=== PATIENT | female | born 1975 | race Caucasian/White ===

== ENCOUNTER → 2020-04-13 13:51 | Outpatient (BNVA) | payer BC, SELFPAY | PROVIDERS: PCP Internal Medicine; Visit Provider Obstetrics & Gynecology | DX: Z76.89 Persons encountering health services in other specified circumstances (principal) ==

== ENCOUNTER 2020-05-09 06:37 | Outpatient (REF) | payer BC, SELFPAY ==
--- NOTE | 2020-05-09 | XR_ITS ---
EXAMINATION: XR CHEST CLINICAL INFORMATION: Cough COMPARISON: None TECHNIQUE: 2 views of the chest were obtained. FINDINGS: The lungs are clear. There is no airspace consolidation or definite groundglass opacity. The costophrenic sulci are well-defined. The heart is normal in size. The hilar and mediastinal contours are normal. Bony structures are unremarkable. XR/XR chest 2V IMPRESSION: Unremarkable examination.
[2020-05-09 11:16] LABS: MANUAL DIFF FLAG NO
[2020-05-09 11:28] LABS: Basophils Absolute Auto 0.1 X10*3/uL (0.0-0.2); Basophils Percent Auto 0.8 % (0-2); Eosinophils Absolute Auto 0.1 X10*3/uL (0.0-0.4); Eosinophils Percent Auto 1.7 % (0-4); Hematocrit 38.9 % (37-47); Hemoglobin 12.4 g/dl (12.0-16.0); Imm Gran Abs Auto 0.02 X10*3/uL (0.00-0.03); Imm Gran Pct Auto 0.3 % (0.0-0.4); Lymphocytes Absolute Auto 2.1 X10*3/uL (1.2-4.9); Lymphocytes Percent Auto 32.2 % (20-40); Mean Corpuscular HGB Conc 31.9 g/dl (31.0-35.0); Mean Corpuscular Hemoglobin 28.3 pg (27.0-33.0); Mean Corpuscular Volume 88.8 fL (80-98); Mean Platelet Volume 10.5 fL (9.4-12.3); Monocytes Absolute Auto 0.5 X10*3/uL (0.1-1.2); Monocytes Percent Auto 7.9 % (2-11); Neutrophils Absolute Auto 3.6 X10*3/uL (2.0-8.3); Neutrophils Percent Auto 57.1 % (45-73); Platelet Count 263 X10*3/uL (160-400); Red Blood Count 4.38 X10*6/uL (4.20-5.50); Red Cell Distribution Width 12.7 % (11.0-16.0); White Blood Count 6.4 X10*3/uL (4.8-10.8)
[2020-05-09 11:38] LABS: Glucose Urine UA NEG (NEG); Leukocyte Esterase Urine TRACE (NEG); Nitrite Urine NEG (NEG); Urine Blood TRACE (NEG); Urine Ketones NEG (NEG); Urine Protein NEG (NEG-TRACE)
[2020-05-09 11:46] LABS: Appearance Urine HAZY; Color Urine YELLOW
[2020-05-09 11:58] LABS: Alanine Aminotransferase 8 U/L (0-31); Albumin Level 3.8 g/dL (3.5-5.0); Alkaline Phosphatase 45 U/L (39-117); Anion Gap 15 (12-20); Aspartate Amino Transferase 14 U/L (5-31); Bilirubin Total 0.5 mg/dL (0.0-1.0); Blood Urea Nitrogen 10 mg/dL (9-16); Calcium 8.2 mg/dL (8.4-10.2); Carbon Dioxide 21 mmol/L (22-29); Chloride 106 mmol/L (96-108); Cholesterol 181 mg/dL; Estimated Glomerular Filt Rate > 60; Glucose Random 86 mg/dL (60-115); HDL Cholesterol 57 mg/dL; LDL Cholesterol Calculated 87 mg/dl; Potassium 4.4 mmol/l (3.3-5.1); Sodium 138 mmol/L (135-145); Total Protein 6.5 g/dL (6.5-8.0); Triglycerides 185 mg/dL
[2020-05-09 12:00] LABS: Bacteria Urine 2+ /LPF; Squamous Epithelial Cell Urine 2+ /LPF
[2020-05-09 12:07] LABS: Free T4 (Free Thyroxine) 0.77 ng/dL (0.71-1.85); Thyroid Stimulating Hormone 3.04 uIU/mL (0.32-4.0)
[2020-05-10 10:08] LABS: SARS COV2 IgG Negative (Negative)
[2020-05-10 16:27] LABS: Follicle Stimulating Hormone 4.2 mIU/mL
== END 2020-05-09 06:38 | disposition home or self-care (01) ==
LOC: HO.HMGCLDS 06:37
PROVIDERS: PCP Physician Assistant; Visit Provider Physician Assistant
DX: Z00.00 Encounter for general adult medical examination without abnormal findings (principal); R05 Cough; Z20.822 Contact with and (suspected) exposure to COVID-19; R61 Generalized hyperhidrosis; R53.83 Other fatigue; Z01.84 Encounter for antibody response examination
CPT/HCPCS: 36415; 71046; 80053; 80061; 81001; 83001; 84439; 84443; 85025; 86769

== ENCOUNTER 2020-05-14 07:00 | Outpatient (REF) | payer BC, SELFPAY ==
[2020-05-14 12:48] LABS: Glucose Urine UA NEG (NEG); Leukocyte Esterase Urine NEG (NEG); Nitrite Urine NEG (NEG); PH 5.5 (5.0-8.0); Specific Gravity - Urine >= 1.030 (1.005-1.025); Urine Blood 1+ (NEG); Urine Ketones NEG (NEG); Urine Protein NEG (NEG-TRACE)
[2020-05-14 12:55] LABS: Appearance Urine TURBID; Color Urine YELLOW
[2020-05-14 13:08] LABS: RBC Urine 0-2 /HPF (0); Squamous Epithelial Cell Urine 2+ /LPF
[2020-05-14 13:09] LABS: Bacteria Urine TRACE /LPF
== END 2020-05-14 07:01 | disposition home or self-care (01) ==
LOC: HO.HMGCLDS 07:00
PROVIDERS: PCP Physician Assistant; Visit Provider Physician Assistant
DX: N39.0 Urinary tract infection, site not specified (principal)
CPT/HCPCS: 81001; 81003; 87086

== ENCOUNTER 2021-01-12 07:55 | Outpatient (REF) | payer BC, SELFPAY ==
--- NOTE | ~2021-01-12 | MM_ITS ---
EXAMINATION: MM SCREENING DIGITAL BREAST TOMOSYNTHESIS, BILATERAL CLINICAL INFORMATION: Screening. Asymptomatic. The lifetime risk of breast cancer based on the Tyrer-Cuzick Model is 11%. COMPARISON: Mammography: 11/29/2019, 09/18/2018, 08/29/2017 TECHNIQUE: Digital breast tomosynthesis is performed in both the craniocaudal and mediolateral oblique views along with computer-aided detection (CAD). Synthesized 2D images are generated from the tomosynthesis. FINDINGS: There are scattered areas of fibroglandular density (ACR BI-RADS breast composition Category b). There are no significant masses, abnormal calcifications, or other abnormalities. Parenchymal pattern is similar to prior exams. No developing density. No significant changes. MM/MM tomosynthesis screening BI IMPRESSION: No mammographic evidence of malignancy. ASSESSMENT: BI-RADS 1: Negative RECOMMENDATION: Routine annual mammography screening. This patient's information was entered into a reminder system with a target due date for their next mammogram.
== END 2021-01-12 07:56 | disposition home or self-care (01) ==
LOC: HO.MAMMO 07:55
PROVIDERS: PCP Nurse Practitioner Family; Visit Provider Nurse Practitioner Family
DX: Z12.31 Encounter for screening mammogram for malignant neoplasm of breast (principal)
CPT/HCPCS: 77063; 77067

== ENCOUNTER → 2021-04-30 15:07 | Outpatient (BNVA) | payer OTHER, SELFPAY | PROVIDERS: PCP Nurse Practitioner Family; Visit Provider Advanced Practice Midwife ==

== ENCOUNTER 2021-05-23 06:37 | Outpatient (REF) | payer OTHER, SELFPAY ==
[2021-05-23 11:30] LABS: Appearance Urine CLEAR; Color Urine YELLOW; Glucose Urine UA NEG (NEG); Leukocyte Esterase Urine NEG (NEG); Nitrite Urine NEG (NEG); PH 7.5 (5.0-8.0); Specific Gravity - Urine 1.015 (1.005-1.025); Urine Blood NEG (NEG); Urine Ketones NEG (NEG); Urine Protein NEG (NEG-TRACE)
[2021-05-23 11:39] LABS: Hematocrit 40.3 % (37.0-47.0); Mean Corpuscular HGB Conc 32.3 g/dl (31.0-35.0); Mean Corpuscular Hemoglobin 28.5 pg (27.0-33.0); Mean Corpuscular Volume 88.4 fL (80.0-98.0); Mean Platelet Volume 10.3 fL (9.4-12.3); Platelet Count 277 X10*3/uL (160-400); Red Blood Count 4.56 X10*6/uL (4.20-5.50); Red Cell Distribution Width 12.7 % (11.0-16.0)
[2021-05-23 11:56] LABS: Alanine Aminotransferase 12 U/L (0-31); Albumin Level 3.9 g/dL (3.5-5.0); Alkaline Phosphatase 46 U/L (39-117); Anion Gap 11 (12-20); Aspartate Amino Transferase 16 U/L (5-31); Bilirubin Total 0.5 mg/dL (0.0-1.0); Blood Urea Nitrogen 12 mg/dL (9-16); Calcium 9.1 mg/dL (8.4-10.2); Carbon Dioxide 26 mmol/L (22-29); Chloride 106 mmol/L (96-108); Cholesterol 170 mg/dL; Estimated Glomerular Filt Rate > 60; Glucose Fasting 94 mg/dL (60-99); HDL Cholesterol 49 mg/dL; LDL Cholesterol Calculated 90 mg/dl; Potassium 4.2 mmol/L (3.3-5.1); Sodium 139 mmol/L (135-145); Total Protein 6.7 g/dL (6.5-8.0); Triglycerides 156 mg/dL
[2021-05-23 12:20] LABS: Thyroid Stimulating Hormone 2.53 uIU/mL (0.32-4.0); Vitamin D 25-OH Total 34.2 ng/mL (>30)
== END 2021-05-23 06:38 | disposition home or self-care (01) ==
LOC: HO.HMGCLDS 06:37
PROVIDERS: Visit Provider Nurse Practitioner Family
DX: Z00.00 Encounter for general adult medical examination without abnormal findings (principal); E78.2 Mixed hyperlipidemia; R00.2 Palpitations; E55.9 Vitamin D deficiency, unspecified; R31.29 Other microscopic hematuria
CPT/HCPCS: 36415; 80053; 80061; 81003; 82306; 84443; 85027

== ENCOUNTER 2022-01-25 08:50 | Outpatient (REF) | payer OTHER, SELFPAY ==
--- NOTE | ~2022-01-25 | MM_ITS ---
EXAMINATION: MM SCREENING DIGITAL BREAST TOMOSYNTHESIS, BILATERAL CLINICAL INFORMATION: Screening. Asymptomatic. The lifetime risk of breast cancer based on the Tyrer-Cuzick Model is 11%. COMPARISON: Mammography: 01/12/2021, 11/29/2019, 09/18/2018 TECHNIQUE: Digital breast tomosynthesis is performed in both the craniocaudal and mediolateral oblique views along with computer-aided detection (CAD). Synthesized 2D images are generated from the tomosynthesis. FINDINGS: There are scattered areas of fibroglandular density (ACR BI-RADS breast composition Category b). There are no significant masses, abnormal calcifications, or other abnormalities. Parenchymal pattern is similar to prior studies. There is no developing density or architectural abnormality. The axilla and skin contours are unremarkable. No significant changes. MM/MM tomosynthesis screening BI IMPRESSION: No mammographic evidence of malignancy. ASSESSMENT: BI-RADS 1: Negative RECOMMENDATION: Routine annual mammography screening. This patient's information was entered into a reminder system with a target due date for their next mammogram.
== END 2022-01-25 08:51 | disposition home or self-care (01) ==
LOC: HO.MAMMO 08:50
PROVIDERS: Visit Provider Nurse Practitioner Family
DX: Z12.31 Encounter for screening mammogram for malignant neoplasm of breast (principal)
CPT/HCPCS: 77063; 77067

== ENCOUNTER 2022-05-01 14:57 | Outpatient (REF) | payer OTHER, SELFPAY ==
[2022-05-03 14:33] LABS: BV Int Neg Control Negative (Negative); BV Int Pos Control Positive (Positive)
[2022-05-09 22:13] LABS: HPV mRNA E6/E7 rflx Not Detected (Not Detected)
== END 2022-05-01 14:58 | disposition home or self-care (01) ==
LOC: HO.LNP 14:57
PROVIDERS: PCP Nurse Practitioner Family; Visit Provider Advanced Practice Midwife
DX: Z01.419 Encounter for gynecological examination (general) (routine) without abnormal findings (principal); Z11.51 Encounter for screening for human papillomavirus (HPV)
CPT/HCPCS: 87480; 87510; 87624; 87660; 88142

== ENCOUNTER 2022-05-31 10:00 | Outpatient (REF) | payer OTHER, SELFPAY ==
[2022-05-31 10:11] LABS: MANUAL DIFF FLAG NO
[2022-05-31 10:39] LABS: Basophils Absolute Auto 0.1 X10*3/uL (0.0-0.2); Basophils Percent Auto 0.9 % (0-2); Eosinophils Absolute Auto 0.2 X10*3/uL (0.0-0.4); Eosinophils Percent Auto 3.4 % (0-4); Hematocrit 40.8 % (37.0-47.0); Hemoglobin 13.4 g/dl (12.0-16.0); Imm Gran Abs Auto 0.01 X10*3/uL (0.00-0.03); Imm Gran Pct Auto 0.2 % (0.0-0.4); Lymphocytes Percent Auto 35.7 % (20-40); Mean Corpuscular HGB Conc 32.8 g/dl (31.0-35.0); Mean Corpuscular Hemoglobin 28.4 pg (27.0-33.0); Mean Corpuscular Volume 86.4 fL (80.0-98.0); Mean Platelet Volume 9.9 fL (9.4-12.3); Monocytes Absolute Auto 0.5 X10*3/uL (0.1-1.2); Monocytes Percent Auto 8.4 % (2-11); Neutrophils Absolute Auto 2.9 x10*3/uL (2.0-8.3); Neutrophils Percent Auto 51.4 % (45-73); Platelet Count 229 X10*3/uL (160-400); Red Blood Count 4.72 X10*6/uL (4.20-5.50); Red Cell Distribution Width 12.5 % (11.0-16.0); White Blood Count 5.6 X10*3/uL (4.8-10.8)
[2022-05-31 10:45] LABS: Appearance Urine Cloudy; Color Urine Yellow; Glucose Urine UA Negative (Negative); Leukocyte Esterase Urine Moderate (2+) (Negative); Nitrite Urine Negative (Negative); Specific Gravity - Urine 1.025 (1.005-1.025); UMIC TRIGGER UA YES; Urine Blood Trace (Negative); Urine Ketones Trace mg/dL (Negative); Urine Protein Negative (Neg-Trace)
[2022-05-31 11:15] LABS: Bacteria Urine 1+ (None Seen); Hyaline Casts Urine 0-2 /LPF (0-2); WBC Urine 0-5 /HPF (0-5)
[2022-05-31 11:38] LABS: Alanine Aminotransferase 26 U/L (0-31); Albumin Level 4.2 g/dL (3.5-5.0); Alkaline Phosphatase 56 U/L (39-117); Anion Gap 11 (12-20); Aspartate Amino Transferase 23 U/L (5-31); Bilirubin Total 0.7 mg/dL (0.0-1.0); Blood Urea Nitrogen 11 mg/dL (9-16); Calcium 9.2 mg/dL (8.4-10.2); Carbon Dioxide 25 mmol/L (22-29); Chloride 107 mmol/L (96-108); Cholesterol 180 mg/dL; Estimated Glomerular Filt Rate > 60; Glucose Random 93 mg/dL (60-115); HDL Cholesterol 48 mg/dL; LDL Cholesterol Calculated 114 mg/dl; Sodium 139 mmol/L (135-145); Total Protein 6.7 g/dL (6.5-8.0); Triglycerides 93 mg/dL
[2022-05-31 11:39] LABS: Thyroid Stimulating Hormone 1.25 uIU/mL (0.32-4.0)
== END 2022-05-31 10:01 | disposition home or self-care (01) ==
LOC: HO.LAB 10:00
PROVIDERS: PCP Nurse Practitioner Family; Visit Provider Nurse Practitioner Family
DX: Z00.00 Encounter for general adult medical examination without abnormal findings (principal)
CPT/HCPCS: 36415; 80053; 80061; 81001; 84443; 85025

== ENCOUNTER 2022-07-18 07:29 | Outpatient (REF) | payer OTHER, SELFPAY ==
[2022-07-18 13:07] LABS: HCG Quantitative < 2 mIU/mL
[2022-07-20 10:13] LABS: Follicle Stimulating Hormone 31.4 mIU/mL
== END 2022-07-18 07:30 | disposition home or self-care (01) ==
LOC: HO.HMGCLDS 07:29
PROVIDERS: Visit Provider Advanced Practice Midwife
DX: N91.2 Amenorrhea, unspecified (principal); N95.1 Menopausal and female climacteric states
CPT/HCPCS: 36415; 83001; 84702

== ENCOUNTER → 2022-07-30 15:43 | Outpatient (BNVA) | payer OTHER, SELFPAY | PROVIDERS: PCP Nurse Practitioner Family; Visit Provider Advanced Practice Midwife | DX: Z13.89 Encounter for screening for other disorder (principal) ==

== ENCOUNTER 2023-01-31 09:39 | Outpatient (REF) | payer OTHER, SELFPAY ==
[2023-02-01 23:28] LABS: Follicle Stimulating Hormone 20.8 mIU/mL
== END 2023-01-31 09:40 | disposition home or self-care (01) ==
LOC: HO.MAMMO 09:39
PROVIDERS: PCP Nurse Practitioner Family; Referring Provider Advanced Practice Midwife; Visit Provider Nurse Practitioner Family
DX: Z12.31 Encounter for screening mammogram for malignant neoplasm of breast (principal); R23.2 Flushing
CPT/HCPCS: 36415; 77063; 77067; 83001

== ENCOUNTER → 2023-01-31 10:00 | Outpatient (BNV) | payer OTHER, SELFPAY | PROVIDERS: PCP Nurse Practitioner Family; Referring Provider Advanced Practice Midwife; Visit Provider Radiology Diagnostic Radiology | DX: Z12.31 Encounter for screening mammogram for malignant neoplasm of breast (principal) | CPT/HCPCS: 77063; 77067 ==

== ENCOUNTER 2023-02-12 15:38 | Outpatient (AMB) | payer OTHER, SELFPAY ==
--- NOTE | 2023-02-12 15:40 | A.OFFVIS_ITS ---
Intake Vital Signs 02/12/23 15:43 Height 5 ft 4 in Weight 177 lb BMI 30.4 BP 132/80 Intake Visit Reasons: 6 month pill follow up Intake Note: The patient agreed to use of a medical record technician during this encounter. Scribed for DAGMAR Villatoro by Chika Romeo medical record technician, on 02/12/2023 at 3:50 pm, EST. Allergies latex [Latex] Allergy (Unknown, Verified 02/12/23 15:40) RASH HPI HPI Comments History of Present Illness Details Following up on Carmen 0.35 mg PO daily. Doing well with no yarn wrapper concerns. Tries to eat healthy and stay active. Discontinue the use of Carmen in 11/2022. Confirms difficulty sleeping, weight gain, and hot flashes. Confirmed bleeding in 11/2022. Denies having one since. PFSH Medical History Hot flashes History of kidney stones Surgical History History of removal of calculus of renal pelvis through percutaneous nephrostomy History of History of left oophorectomy History of dilation and curettage Family History Father Hypertension Diabetes Hyperlipidemia History of quadruple bypass Mother Frontotemporal dementia Brother Hypothyroid Social History Alcohol intake: current Alcohol intake frequency: holidays/special occasions only Patient Tobacco Use Status: Never used Tobacco Sexual orientation: Straight/Heterosexual Gender identity: Female Female Reproductive History Menstrual Age of Menarche: 11 Total pregnancies: 3 Full term: 2 Number of Living Children: 2 Ab spontaneous: 1 Review of Systems Const All systems reviewed & are unremarkable except as noted in HPI and below Reports fatigue (Due to not being able to stay asleep.) and Reports weight gain Reports hot flashes Endo Reports fatigue (Due to not being able to stay asleep.) Physical Exam Vital Signs: Last Vital Signs BP 132/80 02/12/23 15:43 BMI result Body Mass Index 30.4 Results Reviewed Results Reviewed: 07/18/2022- FSH 31.4 01/31/2023- FSH 20.8 Assessment & Plan Assessment & Plan (1) Perimenopausal: Code(s): N95.1 - Menopausal and female climacteric states Plan: Maintaining a healthy lifestyle including a well balanced diet including Calcium and Vitamin D and routine exercise. Perimenopause verses menopause. If bleeding less then 3 weeks apart or heavy prolong bleeding then she should come sooner then her 05/2023 appointment. We will continue monitoring at this time. Encouraged to use condoms for reproductive protection. All of her questions and concerns were addressed to the best of my ability Annual 05/2023. (2) Encounter to discuss test results: Code(s): Z71.2 - Person consulting for explanation of examination or test findings Plan: Test results were reviewed while in the office today. Coding Level of Care Code Est Pt Level 3 (13496) Diagnoses Perimenopausal N95.1 Encounter to discuss test results Z71.2
[2023-02-12 15:43] VITALS: BP 132/80; BMI 30.4
== END 2023-02-12 16:28 | disposition home or self-care (01) ==
PROVIDERS: Visit Provider Advanced Practice Midwife
DX: N95.1 Menopausal and female climacteric states (principal); Z71.2 Person consulting for explanation of examination or test findings
CPT/HCPCS: 99213

== ENCOUNTER → 2023-02-12 15:38 | Outpatient (BNVA) | payer OTHER, SELFPAY | PROVIDERS: Visit Provider Advanced Practice Midwife ==

== ENCOUNTER 2023-05-14 15:45 | Outpatient (AMB) | payer OTHER, SELFPAY ==
--- NOTE | 2023-05-14 15:48 | MHC.OFFVIS ---
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 She is doing well with concerns: menses are skipping, occasional hot flashes. Attempting to eat a healthy diet with calcium and vitamin D and stays active with exercise. Currently not sexually active. Denies any vaginal dryness or irritation. Last pap smear; 2021. Last mammogram; 2022 . Colonoscopy, not done yet, plans to call. Denies any family history of breast, ovarian or colon cancer. [facility] Medical History Hot flashes History of kidney stones Surgical History History of removal of calculus of renal pelvis through percutaneous nephrostomy History of History of left oophorectomy History of dilation and curettage Family History Father Hypertension Diabetes Hyperlipidemia History of quadruple bypass Mother Frontotemporal dementia Brother Hypothyroid Social History Alcohol intake: current Alcohol intake frequency: holidays/special occasions only Patient Tobacco Use Status: Never used Tobacco Sexual orientation: Straight/Heterosexual Gender identity: Female Female Reproductive History Menstrual Age of Menarche: 11 Duration of menses: 6-7 days Date of last menstrual period: 02/27/23 control method: none Total pregnancies: 3 Full term: 2 Number of Living Children: 2 Ab spontaneous: 1 Date of last pap smear: 05/02/22 (negative) History of abnormal pap smear: No Date of Mammogram: 01/31/23 Review of Systems Const All systems reviewed & are unremarkable except as noted in HPI and below Reports as per HPI Eyes Reports no additional complaints ENT Reports no additional complaints Card Reports no additional complaints Resp Reports no additional complaints GI Reports as per HPI and Reports no additional complaints Reports as per HPI Musc Reports no additional complaints Skin/Breast Reports as per HPI Neuro Reports no additional complaints Psych Reports no additional complaints Endo Reports no additional complaints Randy/Lymph Reports no additional complaints Aller/Immun Reports no additional complaints Physical Exam Vital Signs: Last Vital Signs BP 118/80 05/14/23 15:49 BMI result Body Mass Index 30.2 Const General: cooperative, healthy appearing, no acute distress, well developed and alert Orientation/consciousness: patient oriented x3 HEENT Head: Yes normal to inspection Eyes General: appearance normal, both eyes and all related structures Neck Neck: Yes normal visual inspection Thyroid: Thyroid normal Chest Chest palpation & inspection: normal inspection of the chest and other (no puckering, dimpling, peau de orange, retraction, discharge, masses) Breast/axilla inspection: normal inspection of the breasts Breast/axilla palpation: normal palpation of the breasts Resp Effort & Inspection: normal respiratory effort GI Inspection: Yes normal to inspection Palpation (GI): Soft to palpation Rectal Exam - Female: deferred General: Yes bladder normal to palpation External Female Exam: normal external appearance and normal appearance of the urethra Speculum Exam - Vagina: normal appearance of the vagina, normal palpation and normal vaginal discharge Speculum Exam - Cervix: normal appearance of the cervix and normal palpation Bimanual exam- vagina & uterus: normal bimanual exam, normal palpation, uterine size normal, bladder normal to palpation, normal palpation and non-tender Bimanual Exam- Adnexa, other: no masses Skin General skin exam: no rashes or lesions noted Rashes: no rashes Neuro General: patient oriented x3 Cognition (Neuro): normal cognition Extrem General: Yes normal to inspection Psych Attitude: cooperative Thought process: Normal thought process present Assessment & Plan Assessment & Plan (1) Encounter for well woman exam with routine gynecological exam: Code(s): Z01.419 - Encounter for gynecological examination (general) (routine) without abnormal findings Plan Discussed: Current recommendations for pap smears per ASCCP guidelines. Breast awareness, periodic self breast exams and yearly mammogram. Maintain a healthy lifestyle, well balanced diet including Calcium 1,200 mg and Vitamin D 600 IU daily, and routine exercise. Sleep hygiene, OTC medications/supplements-magnesium, melatonin, may try one or the other to see if it will help with sleep. Monitor menstrual cycles, report any unscheduled bleeding, bleeding episodes <21 days apart or heavy/prolonged menstrual bleeding. No menses for 12 months would be considered menopausal, bleeding after that point would be considered abnormal. Report any abnormal bleeding. All of her questions and concerns were addressed to the best of my ability. RTO in 1 year for annual intensive care nurse exam, or p.r.n.. This note is constructed using voice recognition software. While every effort has been made to ensure accuracy, director inbound sales errors may have been included. Orders: Orders MM tomosynthesis screening BI Today Z12.31 - Encounter for screening mammogram for malignant neoplasm of breast Coding Level of Care Code Est Pt Prev Care 40-64y(70648) Diagnoses Encounter for well woman exam with routine gynecological exam Z01.419
[2023-05-14 15:49] VITALS: BP 118/80; BMI 30.2
== END 2023-05-14 16:25 | disposition home or self-care (01) ==
LOC: HO.HWS 15:45
PROVIDERS: PCP Nurse Practitioner Family; Visit Provider Advanced Practice Midwife
DX: Z01.419 Encounter for gynecological examination (general) (routine) without abnormal findings (principal)
CPT/HCPCS: 99396

== ENCOUNTER → 2023-05-14 15:45 | Outpatient (BNVA) | payer OTHER, SELFPAY | PROVIDERS: PCP Nurse Practitioner Family; Visit Provider Advanced Practice Midwife ==

== ENCOUNTER 2023-05-26 06:58 | Outpatient (REF) | payer OTHER, SELFPAY ==
[2023-05-26 11:39] LABS: Appearance Urine Clear; Color Urine Yellow; Glucose Urine UA Negative (Negative); Leukocyte Esterase Urine Negative (Negative); Nitrite Urine Negative (Negative); PH 5.5 (5.0-9.0); Urine Blood Negative (Negative); Urine Ketones Negative (Negative); Urine Protein Negative (Neg-Trace)
[2023-05-26 11:44] LABS: MANUAL DIFF FLAG NO
[2023-05-26 12:02] LABS: Basophils Percent Auto 0.8 % (0-2); Eosinophils Absolute Auto 0.2 X10*3/uL (0.0-0.4); Hematocrit 40.8 % (37.0-47.0); Hemoglobin 13.3 g/dl (12.0-16.0); Imm Gran Abs Auto 0.02 X10*3/uL (0.00-0.03); Imm Gran Pct Auto 0.4 % (0.0-0.4); Lymphocytes Absolute Auto 1.7 X10*3/uL (1.2-4.9); Mean Corpuscular HGB Conc 32.6 g/dl (31.0-35.0); Mean Corpuscular Hemoglobin 28.6 pg (27.0-33.0); Mean Corpuscular Volume 87.7 fL (80.0-98.0); Monocytes Absolute Auto 0.4 X10*3/uL (0.1-1.2); Monocytes Percent Auto 8.2 % (2-11); Neutrophils Absolute Auto 2.7 x10*3/uL (2.0-8.3); Neutrophils Percent Auto 53.6 % (45-73); Platelet Count 214 X10*3/uL (160-400); Red Blood Count 4.65 X10*6/uL (4.20-5.50); Red Cell Distribution Width 12.7 % (11.0-16.0)
[2023-05-26 15:47] LABS: Alanine Aminotransferase 15 U/L (0-31); Albumin Level 4.2 g/dL (3.5-5.0); Alkaline Phosphatase 71 U/L (39-117); Anion Gap 11 (12-20); Aspartate Amino Transferase 19 U/L (5-31); Bilirubin Total 0.6 mg/dL (0.0-1.0); Blood Urea Nitrogen 12 mg/dL (9-16); Carbon Dioxide 27 mmol/L (22-29); Chloride 104 mmol/L (96-108); Cholesterol 151 mg/dL (<200); Estimated Glomerular Filt Rate > 60; Glucose Random 88 mg/dL (60-115); HDL Cholesterol 51 mg/dL (>40); LDL Cholesterol Calculated 86 mg/dL (<100); Sodium 138 mmol/L (135-145); Total Protein 6.8 g/dL (6.5-8.0); Triglycerides 74 mg/dL (<150)
[2023-05-26 16:07] LABS: Thyroid Stimulating Hormone 2.79 uIU/mL (0.32-4.0); Vitamin D 25-OH Total 38.9 ng/mL (>30)
== END 2023-05-26 06:59 | disposition home or self-care (01) ==
LOC: HO.HMGCLDS 06:58
PROVIDERS: PCP Nurse Practitioner Family; Visit Provider Nurse Practitioner Family
DX: Z00.00 Encounter for general adult medical examination without abnormal findings (principal); E78.2 Mixed hyperlipidemia; E55.9 Vitamin D deficiency, unspecified; E66.3 Overweight
CPT/HCPCS: 36415; 80053; 80061; 81003; 82306; 84443; 85025

== ENCOUNTER 2023-10-30 08:54 | Day surgery (SDC) | payer OTHER, SELFPAY ==
[2023-10-28 13:40] VITALS: BMI 30.2
--- NOTE | 2023-10-29 09:55 | HO.ANESPROP2 ---
HPI - Anesthesia Eval Consult details Narrative: 48yo F for Colonoscopy PMFSH Active Problems Active Problems: All Active Problems Encounter to discuss test results (Acute) Encounter for annual routine gynecological examination (Acute) Hot flashes (Acute) Past Medical History Medical History Vitamin D deficiency Hyperlipidemia Hot flashes History of kidney stones Family History Family History Father Hypertension Diabetes Hyperlipidemia History of quadruple bypass Mother Frontotemporal dementia Brother Hypothyroid Surgical History Surgical History History of removal of calculus of renal pelvis through percutaneous nephrostomy History of History of left oophorectomy History of dilation and curettage Social History Social History Household Members: Spouse Alcohol intake: current Alcohol intake frequency: holidays/special occasions only Patient Tobacco Use Status: Never used Tobacco Use of substances other than those prescribed or required for medical reasons: No Are you DNR?: No Advance Directives: No Advance Directives Information Provided: Yes Patient : No Sexual orientation: Straight/Heterosexual Gender identity: Female Meds Allergies Allergy/AdvReac Type Severity Reaction Status Date / Time latex [Latex] Allergy Unknown RASH Verified 10/30/23 09:09 Home Medications ?Medication ?Instructions ?Recorded ?Confirmed ?Last Taken ?Type atorvastatin 10 mg tablet 10 mg PO DAILY 04/13/20 10/30/23 10/28/23 History cholecalciferol (vitamin D3) 50 50 mcg PO DAILY 04/30/21 10/30/23 10/29/23 History mcg (2,000 unit) capsule Exam Height,Weight and Vital Signs: Height 5 ft 5 in Weight 82.327 kg Assessment and Plan Assessment Anesthesia Assessment: Chart Reviewed
[2023-10-30 09:01] VITALS: BMI 28.3
--- NOTE | 2023-10-30 09:12 | HO.ANESPROP2 ---
FORMERLY [facility], [facility] Active Problems Active Problems: All Active Problems Encounter to discuss test results (Acute) Encounter for annual routine gynecological examination (Acute) Hot flashes (Acute) Past Medical History Medical History Vitamin D deficiency Hyperlipidemia Hot flashes History of kidney stones Functional capacity: independent ambulation Patient : No Family History Family History Father Hypertension Diabetes Hyperlipidemia History of quadruple bypass Mother Frontotemporal dementia Brother Hypothyroid Family history of problems with anesthesia: No Surgical History Surgical History History of removal of calculus of renal pelvis through percutaneous nephrostomy History of History of left oophorectomy History of dilation and curettage History of Problems with Anesthesia: No Social History Social History Household Members: Spouse Alcohol intake: current Alcohol intake frequency: holidays/special occasions only Patient Tobacco Use Status: Never used Tobacco Use of substances other than those prescribed or required for medical reasons: No Are you DNR?: No Advance Directives: No Advance Directives Information Provided: Yes Sexual orientation: Straight/Heterosexual Gender identity: Female Meds Allergies Allergy/AdvReac Type Severity Reaction Status Date / Time latex [Latex] Allergy Unknown RASH Verified 10/30/23 09:09 Active Medications: Current Medications Lactated Ringer's (Lr) 1,000 mls @ 100 mls/hr IVCONT .Q10H YAMILA Home Medications ?Medication ?Instructions ?Recorded ?Confirmed ?Last Taken ?Type atorvastatin 10 mg tablet 10 mg PO DAILY 04/13/20 10/30/23 10/28/23 History cholecalciferol (vitamin D3) 50 50 mcg PO DAILY 04/30/21 10/30/23 10/29/23 History mcg (2,000 unit) capsule Exam Height,Weight and Vital Signs: Height 5 ft 5 in Weight 77.111 kg Airway Mallampati Class: II TM Dist: >3cm Neck ROM: Full Heart: RRR Lungs: CTA Assessment and Plan Assessment Anesthesia Assessment: Anesthesia Plan Discussed Final Anesthetic Review Family History of Problems with Anesthesia: No History of Problems with Anesthesia: No NPO: Yes ASA Class: II Final Preanesthetic Review: Meds/Allgs Chart Reviewed, Consent Obtained/Reviewed and Anes Risks/Benef Reviewed Patient Risk: Low Procedure Risk: Low Anesthetic Plan Anesthetic Plan: MAC: Disposition: Standard PACU
--- NOTE | 2023-10-30 09:22 | P.HPSUR_ITS ---
Pre-Procedural Eval Section A - 24 Hr Update-Section A only Date of Service: 10/30/23 Section B - Complete if H&P > 30 days Chief Complaint: Encounter for screening for malignant neoplasm of Details of Present Illness: see H&P no changes Relevant Family History (Specify if Yes): No Relevant Social History: None Present Medications: see Short Stay Collaborative assessment Medical History: No relevant PMH History of Previous Operations: No relevant previous surgery Allergies: Allergies Allergy/AdvReac Type Severity Reaction Status Date / Time latex [Latex] Allergy Unknown RASH Verified 10/30/23 09:09 Review of Systems Sugical H&P ROS: Negative: Constitution, Cardiovascular, Respiratory, Neurological, Psychiatric, Hem-Onc, Allergic/Immunologic, Gastrointestinal, Genitourinary, Musculoskeletal, Integumentary, Endocrine and Eyes/E ars/Nose/Throat Exam Surgical H&P Exam: Normal: HEENT, Normal: Heart, Normal: Lungs, Normal: Extremities, Normal: Abdomen, Normal: Skin and Normal: Neurological Plan Diagnosis/Plan: Unchanged I have reviewed the history and physical and performed a pertinent physical examination on my patient. No changes have occurred unless specified. Time Spent With Patient Time: Total time managing care of this patient today ____ minutes.
[2023-10-30 09:23] VITALS: BP 124/79; PULSE 97; RESP 16; TEMP 36.7; O2SAT 99
[2023-10-30] MEDS: Lactated Ringers 1,000 ML 100 ML IVCONT (09:25)
[2023-10-30 09:26] LABS: UPreg QC Valid YES; Urine Pregnancy NEGATIVE (NEGATIVE)
[2023-10-30 10:01] VITALS: BP 103/51; PULSE 76; RESP 16; TEMP 36.3; O2SAT 95
[2023-10-30 10:16] VITALS: BP 122/78; PULSE 71; RESP 16; O2SAT 96
--- NOTE | 2023-10-30 10:21 | OP_ITS ---
DATE OF SERVICE: 10/30/2023 SURGEON: Jd Blanco MD INDICATIONS: Colon cancer screening. PREOPERATIVE DIAGNOSIS: POSTOPERATIVE DIAGNOSIS: PROCEDURE PERFORMED: Colonoscopy to the terminal ilium. ESTIMATED BLOOD LOSS: COMPLICATIONS: ANESTHESIA: Monitored anesthesia care. ASSISTANTS: SPECIMENS: DESCRIPTION OF PROCEDURE: A history and physical was performed. The risks and benefits of the procedure were explained to the patient. Informed consent was obtained. The patient was placed in the left lateral decubitus position. A digital rectal exam was performed and was found to be normal. The Olympus pediatric video colonoscope was introduced into the rectum and advanced to the cecum. The cecum was identified by transillumination, palpation, and identification of ileocecal valve. Examination was performed. The scope was removed. She tolerated the procedure well and was returned to the recovery area in stable condition. FINDINGS: The terminal ileum was examined and appeared normal. The visualized colonic mucosa was within normal limits without evidence of masses or ulcers. No polyps were identified. The quality of the prep was good. Retroflexed examination showed some small internal hemorrhoids. IMPRESSION: Normal colonoscopy. RECOMMENDATION: 1. Follow up as needed. 2. Repeat colonoscopy is recommended in 10 years for average-risk individuals. MD PABLO Brannon/FLACA / [phone]
--- NOTE | 2023-10-30 10:25 | HO.POSTANES ---
Post Anesthesia Evaluation Post Anesthesia Evaluation Date of Service: 10/30/23 Vital Signs: Vital Signs Temp Pulse Resp BP Pulse Ox O2 Del Method 10/30/23 10:16 71 16 122/78 96 Room Air 10/30/23 10:01 97.4 F 76 16 103/51 L 95 Room Air 10/30/23 09:23 98.1 F 97 16 124/79 99 Room Air Anesthesia: Monitored Mental Status: Awake Pain Control: Satisfactory Nausea/Vomiting: None Hydration: Adequate Anesthesia-Related Issues: No Anes. Related Issues
[2023-10-30 10:30] VITALS: BP 123/81; PULSE 70; RESP 16; TEMP 36.2; O2SAT 99
== END 2023-10-30 11:30 | disposition home or self-care (01) ==
PROVIDERS: Nurse Practitioner; PCP Registered Nurse; Visit Provider Internal Medicine Gastroenterology
PROC: 0DJD8ZZ Inspection of Lower Intestinal Tract, Via Natural or Artificial Opening Endoscopic (ICD-10-PCS; CPT 45378; principal; 2023-10-30 10:00)
DX: Z12.11 Encounter for screening for malignant neoplasm of colon (principal); K64.8 Other hemorrhoids; E78.5 Hyperlipidemia, unspecified; E55.9 Vitamin D deficiency, unspecified; Z79.899 Other long term (current) drug therapy; Z91.040 Latex allergy status; Z98.890 Other specified postprocedural states
CPT/HCPCS: 45378; 81025; J2704

== ENCOUNTER 2024-02-06 09:50 | Outpatient (REF) | payer OTHER, SELFPAY ==
--- NOTE | ~2024-02-06 | MM_ITS ---
EXAMINATION: MM SCREENING DIGITAL BREAST TOMOSYNTHESIS, BILATERAL CLINICAL INFORMATION: Screening. Asymptomatic. COMPARISON: Mammography: Comparison is made with available priors TECHNIQUE: Digital breast mammography with tomosynthesis is performed in both the craniocaudal and mediolateral oblique views along with computer-aided detection (CAD). FINDINGS: There are scattered areas of fibroglandular density (ACR BI-RADS breast composition Category b). There are no significant masses, abnormal calcifications, or other abnormalities. MM/MM tomosynthesis screening BI IMPRESSION: No mammographic evidence of malignancy. ASSESSMENT: BI-RADS BI-RADS 1 - Negative RECOMMENDATION: Routine annual mammography screening. 1 year F/U This examination should not preclude the clinical evaluation of a suspicious palpable abnormality. This patient's information was entered into a reminder system with a target due date for their next mammogram. Electronically signed by: Lesly Gleason DO 02/19/2024 09:31 AM EDT
== END 2024-02-06 09:51 | disposition home or self-care (01) ==
LOC: HO.MAMMO 09:50
PROVIDERS: PCP Registered Nurse; Visit Provider Registered Nurse
DX: Z12.31 Encounter for screening mammogram for malignant neoplasm of breast (principal)
CPT/HCPCS: 77063; 77067

== ENCOUNTER → 2024-02-06 10:00 | Outpatient (BNV) | payer OTHER, SELFPAY | PROVIDERS: PCP Registered Nurse; Visit Provider Internal Medicine | DX: Z12.31 Encounter for screening mammogram for malignant neoplasm of breast (principal) | CPT/HCPCS: 77063; 77067 ==

== ENCOUNTER 2024-05-27 07:21 | Outpatient (REF) | payer OTHER, SELFPAY ==
--- OUTSIDE RECORDS SUMMARY | 2024-05-27 07:25 | XMS_ITS | Data Portability ---
Author Organization [facility] Home Service Address [address] [place] [address] Assessment No assessment recorded. Plan of Treatment Reminders Order Date Submit Date Provider Last Modified By Organization Details Last Modified Time Details Appointments None recorded. Lab urinalysis , dipstick 2017 018 [facility], [address] [place] [address], [address], 9 12:19:13 FSH (follicle- stimulatin g hormone), serum 2020 021 [facility], [address] [place] [address], [address], 1 12:55:00 SARS CoV 2 IgG Ab, QL IA, serum or plasma 2020 021 [facility], [address] [place] [address], [address], 13:58:59 urinalysis , complete 2020 [facility], [address] [place] [address], [address], 11:50:12 CMP, serum or plasma 2020 [facility], [address] [place] [address], [address], 1 11:50:11 CBC w/ auto diff 2020 [facility], [address] [place] [address], [address], 1 11:50:12 lipid panel, blood 2020 021 [facility], [address] [place] [address], [address], 11:50:12 TSH + free T4, serum 2020 021 [facility], [address] [place] [address], [address], 11:50:12 Referral None recorded. Procedures None recorded. Surgeries None recorded. Imaging electrocar diogram 2018 019 [email or web address] 10 [facility], [address], [address], [place], [address], 9 16:24:48 XR, hip, unilateral 2018 019 [facility]ner [facility], [place], [address], 9 08:48:35 XR, chest, 2 view 2020 021 [facility]), [address] [place] [address], [address], 17:05:50 Medication Orders valacyclov ir 500 mg tablet 2017 018 [id number], [address] [place], [address], 9 15:27:14 Patient TargetsNo targets recorded. Patient Instructions Encounter Date Encounter Id Patient Instructions Last Modified By Organization Details Last Modified Time 04/21/2018 [id number] Healthy diet Forms completed alda Not available 04/21/2018 14:18:45 04/15/2019 [id number] elevated blood pressure: care instructions valdo Not available 04/15/2019 16:15:23 learning about healthy weight Not available 04/15/2019 15:38:53 Reason for Referral None Reported. Results Created Date Observation Date Name Description Value Unit Range Abnormal Flag Note LastModifiedBy Organization Detail LastModifiedTime 04/15/20 19 04/15/2019 elect rocar diogr am Rate & Rhythm 78 Not Available [facility] [address], [place], [address], 04/15/2019 15:57:26 04/15/20 19 04/15/2019 elect rocar diogr am QRS 92 ms Not Available [facility] [address], [place], [address], 04/15/2019 15:57:26 04/15/20 19 04/15/2019 elect rocar diogr am VA Interval 154 Not Available [facility] [address] [facility], [place], [address], 04/15/2019 15:57:26 04/15/20 19 04/15/2019 elect rocar diogr am QRS Duration 92 Not Available [facility] [address], [place], [address], 04/15/2019 15:57:26 04/15/20 19 04/15/2019 elect rocar diogr am QT Interval 374/42 6 Not Available [facility] [address], [place], [address], 04/15/2019 15:57:26 09/21/19 19 09/18/2018 MAMMO , scree chuy, bilat eral No observ ation record ed. [facility] (Medical Records) [address], [place], [address], 09/20/2018 11:40:11 11/30/19 20 11/29/2019 MAMMO , diagn ostic , digit al, bilat eral No observ ation record ed. [facility] [address] [facility], [place], [address], 11/30/2019 09:51:57 05/09/19 21 05/09/2020 XR, chest , 2 view No observ ation record ed. [facility] (Medical Records) [address], [place], [address], 05/11/2020 12:11:34 Result Notes None recorded. Problems Name Problem SNOMED Code Status Onset Date Resolution Date Notes Provider Name and Address Organization Details Recorded Time Hyperchol esterolem ia 99358245 Active 2017 Shanelle Javed NP, S [address] [place] [address], [address], [facility] 8 15:56:28 Vitamin D deficienc y 70292610 Active 2017 Shanelle Javed NP, S [address] [place] [address], [address], [facility] 8 15:58:04 Herpes simplex 65084633 Active 2017 Tiffany Herr [facility] 8 15:27:47 Microscop ic hematuria 318206437 Active 2018 sees urology due to kidney stones [address], [address], [facility] 9 15:45:25 History of calculus of kidney 323389894 Active 2018 [facility] [address], [address], [facility] 9 15:45:32 Problem Notes None recorded. Procedures Surgical History Date Name Laterality Status Provider Name and Address Organization Details Recorded Time 03/04/20 18 Date of Last Pap Smear completed Shanelle Javed NP, S [address] [place] [address], [address], [facility] 04/21/2018 13:39:13 section completed [facility] [address] [place], [address], [facility] 04/15/2019 15:44:54 excision of uterine polyp completed Tiffany Kingsleyrenee [facility] 04/20/2018 15:27:19 oophorectomy completed Kandi Sarahy , [facility] [address] [place], [address], [facility] 04/15/2019 15:45:09 Imaging Results Imaging Date Name Status LastModified by Organiz ation Details LastModified Time 09/18/2018 MAMMO, screening, bilateral completed [facility] (Medical Records) [address] [place] [address], [address], 09/20/2018 11:40:11 11/29/2019 MAMMO, diagnostic, digital, bilateral completed [facility] [address] [place] [address], [address], 11/30/2019 09:51:57 05/09/2020 XR, chest, 2 view completed [facility] (Medical Records) [address] [place] [address], [address], 05/11/2020 12:11:34 Procedure Notes None recorded. Medical Equipment None Reported. Allergies Allergen ID Allergen Name Allergen Category Reaction Reaction Severity Criticality Documentation Date Start Date Code Code System Note Provider Name and Address Organization Details Recorded Time 3644 latex environme nt,medica tion Not available Not available Not available 04/15/2019 13232 91 RxNorm Kandi Kenney, [facility] [address] [place], [address], [facility] 9 15:43:27 Medications Name Sig Start Date Stop Date Status Note LastModified by Organization Details LastModified Time atorvastati n 10 mg tablet TAKE 1 TABLET BY MOUTH EVERY DAY active Not Available Not Available No t Available valacyclovi r 1 gram tablet TAKE 2 TABLETS BY MOUTH EVERY 12 HOURS FOR 1 DAY, SOON SYPMTOMS ONSET active Not Available Not Available No t Available valacyclovi r 500 mg tablet Take 1 tablet every day by oral route as needed. 12/13 /2019 completed Not Available Not Available Not Available sulfamethox azole 800 mg-trimetho prim 160 mg tablet TAKE 1 TABLET BY MOUTH EVERY 12 HOURS WITH MEALS FOR 7 DAYS. active Not Available Not Available No t Available cephalexin 500 mg capsule 04/21 completed Not Available Not Available Not Available Tri-Prevife m (28) 0.18 mg(7)/0.215 mg(7)/0.25 mg(7)-35 mcg tablet TAKE 1 TABLET BY MOUTH EVERY DAY active Not Available Not Available No t Available D3-2000 50 mcg (2,000 unit) capsule Take 1 capsule every day by oral route. active Not Available Not Available No t Available Vitals Date Recorded Body height Body mass index (BMI) Body weight Heart rate Oxygen saturation Oxygen saturation in Arterial blood by Pulse oximetry Provider Name and Address Organization Details Last Updated DateTime 9 166.37 cm 27.7 kg/m2 93025.1 1 g 80 /min 98 % 98 % Fallon Singh [facility] 9 15:28:33 Date Recorded Systolic blood pressure Diastolic blood pressure Provider Name and Address Organization Details Last Updated DateTime 04/15/2019 124 mm[Hg] 76 mm[Hg] August [address], [address] 04/15/2019 15:47:10 Date Recorded Body height Body mass index (BMI) Body weight Body temperature Heart rate Oxygen saturation Oxygen saturation in Arterial blood by Pulse oximetry Systolic blood pressure Diastolic blood pressure Provider Name and Address Organization Details Last Updated DateTime 1 163.2 cm 29.4 kg/m2 75249.6 8 g 97.8 [degF] 85 /min 97 % 97 % 130 mm[Hg] 90 mm[Hg] Fallon Singh [facility] 1 13:34:08 Date Recorded Body height Body mass index (BMI) Body weight Heart rate Oxygen saturation Oxygen saturation in Arterial blood by Pulse oximetry Systolic blood pressure Diastolic blood pressure Provider Name and Address Organization Details Last Updated DateTime 8 165.74 cm 26.9 kg/m2 39312.5 6 g 72 /min 97 % 97 % 100 mm[Hg] 60 mm[Hg] Paola Johnston [place] - [facility] 8 13:31:17 Social History Question Answer Notes LastModified by [employer] Details LastModified Time Tobacco Smoking Status Never Smoker Not Available [facility] 03/06/2020 03:36:23 What Is Your Level Of Alcohol Consumption? Occasional [id number] Information not available 03/06/2020 What Is Your Level Of Caffeine Consumption? None [id number] Information not available 03/06/2020 Do You Or Have You Ever Used E-cigarettes Or Vape? Never Used Electronic Cigarettes [email or web address] Information not available 05/08/2020 What Was The Date Of Your Most Recent Tobacco Screening? 04/21/2018 [email or web address] Information not available 05/08/2020 Do You Or Have You Ever Used Smokeless Tobacco? Never Used Smokeless Tobacco [email or web address] Information not available 05/08/2020 How Much Tobacco Do You Smoke? No [id number] Information not available 03/06/2020 How Many Years Have You Smoked Tobacco? 0 [id number] Information not available 03/06/2020 Sex: Unknown Functional Status Question Answer Note LastModified by [employer] Details LastModified Time What is your exercise level? Occasional [id number] Information not available 03/06/2020 Mental Status None recorded. Family History Relationship Description Onset Age of this Age Resolved Age Notes LastModified by Organization Details LastModified Time Mother Dementia 65 [email or web address] Not available 04/21/2018 13:35:25 Father Coronary arterioscler osis [email or web address] Not available 04/15 15:44:14 Father Diabetes mellitus [email or web address] Not available 04/15 15:44:20 Brother Disorder of thyroid gland [email or web address] Not available 04/15 15:44:33 Brother Asthma Not availabl e 04/15/2019 15:44:38 Medical History Condition Response Coronary Artery Disease N Blood Diseases N Hyperthyroidism N Blood Transfusion N COPD N Depression N Anxiety Disorder N Mental Disorder N Stroke N Fibromyalgia N Kidney Disease N Hospitalizations N Skin Problems N Constipation N Tuberculosis N Asthma N Chronic Ear Infections N Chicken Pox Y Lung Disease N Defects or Inherited Disease N Difficulty Swallowing N Anesthesia Complications N Liver Disease N Thyroid Problems N GI Problems N Anemia N Diabetes N Congestive Heart Failure (CHF) N Abuse/Domestic Violence N Reflux/GERD N Heart Disease N Hypertension N Gout N Kidney Stones Y Muscle, Joint, or Bone Problems N Arthritis N Cancer N Headaches N Heart Problems N Hepatitis N Autism Spectrum Disorder (ASD) N Breast Cancer N Hypothyroidism N Bladder or Kidney Problems N High Cholesterol Y Allergies/Hayfever Y Mental Illness N Seizures/Epilepsy N Gynecological History Statement/Question Response Abnormal Pap N Flow Moderate Frequency of Cycle (Q days) 28 Date of LMP 04/20/2018 Sexually Active? Y Menses Monthly Y HPV Vaccine N Date of Last Pap Smear 03/04/2018 Sexual Problems? N Duration of Flow (days) 7 Age at Menarche 11 Obstetrics History GPAL:G 3 P 2 0 1 0 Type Value Full Term 2 Spontaneous 1 Total 3 Immunizations Vaccine Type Date Status Note Provider Nam e and Address Organization Details Recorded Time tetanus toxoid, unspecified formulation 0 completed Monserrat michele [facility] 05/08/2020 13:20:07 Tdap 0 completed Shanelle Javed NP, S [address] [place] [address], [address] 04/21/2018 13:56:14 Past Encounters Encounter ID Performer Location Encounter Start Date Encounter Closed Date Diagnosis/Indication Diagnosis SNOMED-CT Code Diagnosis ICD10 Code Diagnosis Note [id number] Shanelle Javed NP, S [facility] [address] [place] [address],[place] [address] 04/21/2018 13:18:22 04/21/2018 15:01:42 Adult health examination 391787094 Z00.00 Active or passive immunization 964561056 Z23 Pt defers Flu vaccine Vitamin D deficiency 347 12655 E55.9 To call urologist, find out compisitio n of recent stone & if continuati on Vit. d supplement ation recommende d Herpes simplex 06054759 B00.9 helps cold sores tremendous ly Hypercholesterolemia 136 04815 E78.00 stable Microscopic hematuria 19 3882228 R31.21 [id number] August CATIA Moulton [facility] [address] [facility],[place] [address] 04/15/2019 15:19:04 04/15/2019 16:24:48 Adult health examination 077534497 Z00.00 labs done 04/2019 - reviewed Active or passive immunization 224839099 Z23 refuses flu shot ama Body mass index 25-29 - overweight 633323339 Z68.27 Pain in ri ght hip joint 5027428745 94941 M25.551 comes back everytime she starts running Increased blood pressure 02731076 R03.0 just had garlic parm fries will work on healthier diet choices exercise 30 minutes Dyspnea on exertion 6084 5006 R06.09 possibly EIB, will monitor for change consider stress test if worsening Atypical chest pain 1025 99548 R07.89 able to do spin classes without chest pain acs unlikely but f/u if persistent [id number] KAREEN ROMERO [facility] [address],[place] [address] 05/08/2020 13:19:55 05/08/2020 15:01:27 Adult health examination 216334063 Z00.00 needs repeat lab work, hasn't had it done in a year Exposure t o SARS-CoV-2 741248684 Z20.828 possible COVID in september Cough 16757717 R05 possible COVID in september, will need to check her lungs for residual affects as she is reporting chronic cough and sob with activity Hot sweats 898350330 R61 having hot flashes, will check FSH level to see if in menopause/ gayle menopause Fatigue 75023558 R53.83 family hx of thyroid with brother and parent, needs to be rechecked evan with symptoms she is presenting History of calculus of kidney 243365355 Z87.442 hx of recurrent kidney stones, needs urinalysis for hx of micro-gary turia Health Concerns Section Related Observation LastModified by Organization Detai ls LastModified Time None Recorded Concern Status LastModified by Organization Details LastModified Time None Recorded Advance Directives Directive None Recorded Payers Encounter Date Sequence Insurance Name Policy Number Policy Jo Covered Member ID Jo Member ID Guarantor Name 04/21/2018 1 [place] [id number] Kathy Whitman [id number] Kathy Whitman 05/08/2020 1 [place] [id number] Kathy Whitman [id number] Kathy Whitman Notes Date Note Type Note Provider Name a ny Address Organization Details Recorded Time 8 text/html Annual WellnessReported bypatient.Diet and Nutrition:healthy diet Fracture Risk:no history of fractures; no recent explained fracture; no sudden unexplained fractures; no previous musculoskeletal injuries Physical Activity:exercises on a regular basis; good physical condition Additional Lifestyle Factors:no tobacco use; drinks alcohol (mild-moderate) Depression Risk:never feels sad, empty, or tearful; no loss of interest in activities; no significant changes in weight; no sleep disturbances or insomnia; no agitation; no loss of energy; no feelings of worthlessness or guilt; no thoughts of suicide; no history of depression; no history of mood disorders Hearing:no loss of hearing Vision:no vision problems; wears glasses, up to date eye exams recent renal calculi saw [employer] recently for right ovarian cyst, was multi septated ?'s elevated PTH-I, nml caclium some mild CP behind breast bone after running on treadmill, worse with raising arms, Denies SOB/dizziness Shanelle Javed NP, S [address] [place], [address], [facility] 04/21/2018 14:19:19 9 text/html Annual WellnessReported bypatient.Diet and Nutrition:discussed vitamin and supplement use; discussed portion control; discussed maintaining calcium balance; discussed diet improvement Fracture Risk:no history of fractures; no recent explained fracture; no sudden unexplained fractures; no previous musculoskeletal injuries Physical Activity:does not exercise on a regular basis Additional Lifestyle Factors:no tobacco use; drinks alcohol (mild-moderate) Depression Risk:never feels sad, empty, or tearful; no loss of interest in activities; no significant changes in weight; no sleep disturbances or insomnia; no agitation; no loss of energy; no feelings of worthlessness or guilt; no thoughts of suicide; no history of depression; no history of mood disorders Hearing:no loss of hearing Vision:no vision problems (wears contacts - utd) LMP today has had hernandez intermittently and one time with chest pain on the right side of her chest August CATIA Moulton [address] [facility], [place], [address], [facility] 04/15/2019 16:17:21 1 text/html Annual WellnessReported bypatient.Diet and Nutrition:diet is high in salt;diet is high in fat, low in fiber;high caloric intake;high carbohydrate meals; discussed vitamin and supplement use; discussed portion control; discussed maintaining calcium balance; discussed diet improvement; the patient reports her diet is bad, she states that she eat junk food a lot Fracture Risk:no history of fractures; no recent explained fracture; no sudden unexplained fractures; no previous musculoskeletal injuries Physical Activity:exercises on a regular basis; discussed weightbearing activities; discussed exercise habits; spin class runs Additional Lifestyle Factors:no tobacco use; drinks alcohol (mild-moderate) Depression Risk:never feels sad, empty, or tearful; no loss of interest in activities; no significant changes in weight; no sleep disturbances or insomnia; no agitation; no loss of energy; no feelings of worthlessness or guilt; no thoughts of suicide; no history of depression; no history of mood disorders Hearing:no loss of hearing Vision:no vision problems; glasses and contacts KAREEN ROMERO [address] [place] [address], [address], [facility] 05/08/2020 14:04:52 OBGyn Episode No OBEpisode recorded.
[2024-05-27 10:23] LABS: Hematocrit 41.4 % (37.0-47.0); Hemoglobin 13.5 g/dl (12.0-16.0); Mean Corpuscular HGB Conc 32.6 g/dl (31.0-35.0); Mean Corpuscular Hemoglobin 28.2 pg (27.0-33.0); Mean Corpuscular Volume 86.4 fL (80.0-98.0); Mean Platelet Volume 10.7 fL (9.4-12.3); Platelet Count 212 X10*3/uL (160-400); Red Blood Count 4.79 X10*6/uL (4.20-5.50); Red Cell Distribution Width 12.6 % (11.0-16.0); White Blood Count 7.2 X10*3/uL (4.8-10.8)
[2024-05-27 11:31] LABS: Vitamin B12 451 pg/mL (200-900)
[2024-05-27 13:33] LABS: Alanine Aminotransferase 23 U/L (0-31); Albumin Level 4.1 g/dL (3.5-5.0); Anion Gap 12 (12-20); Aspartate Amino Transferase 31 U/L (5-31); Bilirubin Total 0.6 mg/dL (0.0-1.0); Blood Urea Nitrogen 12 mg/dL (9-16); Calcium 9.4 mg/dL (8.4-10.2); Carbon Dioxide 25 mmol/L (22-29); Chloride 110 mmol/L (96-108); Cholesterol 151 mg/dL (<200); Estimated Glomerular Filt Rate > 60; Glucose Random 94 mg/dL (60-115); HDL Cholesterol 48 mg/dL (>40); LDL Cholesterol Calculated 84 mg/dL (<100); Potassium 4.5 mmol/L (3.3-5.1); Sodium 142 mmol/L (135-145); TSH reflex Free T4 1.25 uIU/mL (0.32-4.0); Total Protein 7.2 g/dL (6.5-8.0); Triglycerides 95 mg/dL (<150); Vitamin D 25-OH Total 46.4 ng/mL (>30)
[2024-05-27 14:25] LABS: Alkaline Phosphatase 75 U/L (39-117)
== END 2024-05-27 07:22 | disposition home or self-care (01) ==
LOC: HO.HMGCLDS 07:21
PROVIDERS: PCP Registered Nurse; Visit Provider Registered Nurse
DX: Z00.00 Encounter for general adult medical examination without abnormal findings (principal); E55.9 Vitamin D deficiency, unspecified; E78.49 Other hyperlipidemia
CPT/HCPCS: 36415; 80053; 80061; 82306; 82607; 84443; 85027

== ENCOUNTER 2024-08-26 11:18 | Outpatient (REF) | payer OTHER, SELFPAY ==
--- NOTE | ~2024-08-26 | XR_ITS ---
EXAMINATION: XR LUMBOSACRAL SPINE CLINICAL INFORMATION: MIDLINE LBP WITHOUT SCIATICA COMPARISON: None available. TECHNIQUE: Three views of the lumbosacral spine. FINDINGS: There is a minimal right convex scoliosis, possibly positional. There is a normal lordosis. There is no subluxation. Normal alignment. No fracture, compression deformity, or suspicious bone lesion. Mild diffuse disc degeneration present most significant at L5-S1. Normal facet alignment. Early facet degenerative arthritis L4-S1. The sacrum is intact. The SI joints appear normal. There is no soft tissue abnormality. XR/XR lumbar spine 2-3V IMPRESSION: 1. No acute findings of the lumbar spine. 2. Mild lumbar spondylosis. Electronically signed by: Jake Haskins MD 08/29/2024 04:08 PM EDT
--- OUTSIDE RECORDS SUMMARY | 2024-08-26 12:14 | XMS_ITS | Data Portability ---
Author Organization [facility] Home Service Address [address] [place] [address] Assessment No assessment recorded. Plan of Treatment Reminders Order Date Submit Date Provider Last Modified By Organization Details Last Modified Time Details Appointments None recorded. Lab FSH (follicle- stimulatin g hormone), serum 2020 [facility], [address] [place] [address], [address], 12:55:00 SARS CoV 2 IgG Ab, QL IA, serum or plasma 2020 [facility], [address] [place] [address], [address], 13:58:59 urinalysis , complete 2020 [facility], [address] [place] [address], 164[address], 11:50:12 CMP, serum or plasma 2020 [facility], [address] [place] [address], [address], 11:50:11 CBC w/ auto diff 2020 [facility], [address] [place] [address], [address], 11:50:12 lipid panel, blood 2020 [facility], [address] [place] [address], [address], 1 11:50:12 TSH + free T4, serum 2020 021 [facility], [address] [place] [address], [address], 1 11:50:12 urinalysis , dipstick 2017 018 [facility], [address] [place] [address], [address], 9 12:19:13 Referral None recorded. Procedures None recorded. Surgeries None recorded. Imaging XR, chest, 2 view 2020 021 [facility] (Imaging), [address] [place] [address], [address], 1 17:05:50 electrocar diogram 2018 019 [email or web address] 10 [facility], [address] [facility], [address], [place], [address], 9 16:24:48 XR, hip, unilateral 2018 019 [facility], [place], [address], 9 08:48:35 Medication Orders valacyclov ir 500 mg tablet 2017 018 [id number], [address] [place], [address], 9 15:27:14 Patient TargetsNo targets recorded. Patient Instructions Encounter Date Encounter Id Patient Instructions Last Modified By Organization Details Last Modified Time 04/21/2018 [id number] Healthy diet Forms completed alda Not available 04/21/2018 14:18:45 04/15/2019 [id number] elevated blood pressure: care instructions [email or web address] Not available 04/15/2019 16:15:23 learning about healthy weight Not available 04/15/2019 15:38:53 Reason for Referral None Reported. Results Created Date Observation Date Name Description Value Unit Range Abnormal Flag Note LastModifiedBy Organization Detail LastModifiedTime 04/15/20 19 04/15/2019 elect rocar diogr am Rate & Rhythm 78 Not Available [facility] [address] [facility] [address], [place], [address], 04/15/2019 15:57:26 04/15/20 19 04/15/2019 elect rocar diogr am QRS 92 ms Not Available [facility] [address] [facility] [address], [place], [address], 04/15/2019 15:57:26 04/15/20 19 04/15/2019 elect rocar diogr am OH Interval 154 Not Available [facility] Internal [facility] [address] [facility], [place], [address], 04/15/2019 15:57:26 04/15/20 19 04/15/2019 elect rocar diogr am QRS Duration 92 Not Available [facility] [address] [facility] [address], [place], [address], 04/15/2019 15:57:26 04/15/20 19 04/15/2019 elect rocar diogr am QT Interval 374/42 6 Not Available [facility] [address] [facility] [address], [place], [address], 04/15/2019 15:57:26 09/21/19 19 09/18/2018 MAMMO , scree chuy, bilat eral No observ ation record ed. [facility] (Medical Records) [address] [facility], [place], [address], 09/20/2018 11:40:11 11/30/19 20 11/29/2019 MAMMO , diagn ostic , digit al, bilat eral No observ ation record ed. [facility] [address] [facility], [place], [address], 11/30/2019 09:51:57 05/09/19 21 05/09/2020 XR, chest , 2 view No observ ation record ed. [facility] (Medical Records) [address] [facility], [place], [address], 05/11/2020 12:11:34 Result Notes None recorded. Problems Name Problem SNOMED Code Status Onset Date Resolution Date Notes Provider Name and Address Organization Details Recorded Time Hyperchol esterolem ia 33403437 Active 2017 Shanelle Javed NP, S [address] [place] [address], [address], [facility] 8 15:56:28 Vitamin D deficienc y 52082701 Active 2017 Shanelle Javed NP, S [address] [place] [address], [address], [facility] 8 15:58:04 Herpes simplex 93072837 Active 2017 Tiffany Herr [facility] 8 15:27:47 Microscop ic hematuria 725332204 Active 2018 sees urology due to kidney stones [address], [address], [facility] 9 15:45:25 History of calculus of kidney 039044798 Active 2018 [facility] [address], [address], [facility] 9 15:45:32 Problem Notes None recorded. Procedures Surgical History Date Name Laterality Status Provider Name and Address Organization Details Recorded Time 03/04/20 18 Date of Last Pap Smear completed Shanelle Javed NP, S [address] [place] [address], [address], [facility] 04/21/2018 13:39:13 section completed [facility] [address] [place], [address], [facility] 04/15/2019 15:44:54 excision of uterine polyp completed Tiffany Kingsleyrenee [facility] 04/20/2018 15:27:19 oophorectomy completed Kandi Sarahy , [facility] [address] [place], [address], [facility] 04/15/2019 15:45:09 Imaging Results Imaging Date Name Status LastModified by Organiz ation Details LastModified Time 09/18/2018 MAMMO, screening, bilateral completed [facility] (Medical Records) [address] [place] [address], [address], 09/20/2018 11:40:11 11/29/2019 MAMMO, diagnostic, digital, bilateral completed [facility] [address] [place] [address], [address], 11/30/2019 09:51:57 05/09/2020 XR, chest, 2 view completed [facility] (Medical Records) [address] [place] [address], [address], 05/11/2020 12:11:34 Procedure Notes None recorded. Medical Equipment None Reported. Allergies Allergen ID Allergen Name Allergen Category Reaction Reaction Severity Criticality Documentation Date Start Date Code Code System Note Provider Name and Address Organization Details Recorded Time 3644 latex environme nt,medica tion Not available Not available Not available 04/15/2019 01876 91 RxNorm Kandi Kenney, [facility] [address] [place], [address], [facility] 9 15:43:27 Medications [...] Updated DateTime 9 166.37 cm 27.7 kg/m2 49104.1 1 g 80 /min 98 % 98 % Fallon Singh [facility] 9 15:28:33 Date Recorded Systolic blood pressure Diastolic blood pressure Provider Name and Address Organization Details Last Updated DateTime 04/15/2019 124 mm[Hg] 76 mm[Hg] August [address], [address] 04/15/2019 15:47:10 Date Recorded Body height Body mass index (BMI) Body weight Body temperature Heart rate Oxygen saturation Oxygen saturation in Arterial blood by Pulse oximetry Systolic blood pressure Diastolic blood pressure Provider Name and Address Organization Details Last Updated DateTime 1 163.2 cm 29.4 kg/m2 54178.6 8 g 97.8 [degF] 85 /min 97 % 97 % 130 mm[Hg] 90 mm[Hg] Fallon Singh [facility] 1 13:34:08 Date Recorded Body height Body mass index (BMI) Body weight Heart rate Oxygen saturation Oxygen saturation in Arterial blood by Pulse oximetry Systolic blood pressure Diastolic blood pressure Provider Name and Address Organization Details Last Updated DateTime 8 165.74 cm 26.9 kg/m2 01018.5 6 g 72 /min 97 % 97 % 100 mm[Hg] 60 mm[Hg] Paola Johnston [place] - [facility] 8 13:31:17 Social History Question Answer Notes LastModified by [employer] Details LastModified Time Tobacco Smoking Status Never Smoker Not Available [facility] 03/06/2020 03:36:23 What Is Your Level Of Alcohol Consumption? Occasional [id number] Information not available 03/06/2020 What Is Your Level Of Caffeine Consumption? None [id number] Information not available 03/06/2020 Do You Or Have You Ever Used E-cigarettes Or Vape? Never Used Electronic Cigarettes [email or web address] Information not available 05/08/2020 What Was The Date Of Your Most Recent Tobacco Screening? 04/21/2018 Information not available 05/08/2020 Do You Or Have You Ever Used Smokeless Tobacco? Never Used Smokeless Tobacco Information not available 05/08/2020 How Much Tobacco Do You Smoke? No [id number] Information not available 03/06/2020 How Many Years Have You Smoked Tobacco? 0 [id number] Information not available 03/06/2020 Sex: Unknown Functional Status Question Answer Note LastModified by [email or web address] Details LastModified Time What is your exercise level? Occasional [id number] Information not available 03/06/2020 Mental Status None recorded. Family History Relationship Description Onset Age of this Age Resolved Age Notes LastModified by Organization Details LastModified Time Mother Dementia 65 [email or web address] Not available 04/21/2018 13:35:25 Father Coronary arterioscler osis [email or web address] Not available 04/15 15:44:14 Father Diabetes mellitus [email or web address] Not available 04/15 15:44:20 Brother Disorder of thyroid gland [email or web address] Not available 04/15 15:44:33 Brother Asthma Not availabl e 04/15/2019 15:44:38 Medical History Condition Response Coronary Artery Disease N Gout N Kidney Stones Y Blood Diseases N Hyperthyroidism N Breast Cancer N Blood Transfusion N Lung Disease N Depression N COPD N Hypothyroidism N Defects or Inherited Disease N Difficulty Swallowing N Anesthesia Complications N Anxiety Disorder N Muscle, Joint, or Bone Problems N Arthritis N Mental Disorder N Cancer N Stroke N Bladder or Kidney Problems N High Cholesterol Y Liver Disease N Fibromyalgia N Headaches N Kidney Disease N Allergies/Hayfever Y Heart Problems N Hospitalizations N Thyroid Problems N GI Problems N Skin Problems N Anemia N Constipation N Mental Illness N Diabetes N Seizures/Epilepsy N Tuberculosis N Congestive Heart Failure (CHF) N Abuse/Domestic Violence N Asthma N Reflux/GERD N Hepatitis N Heart Disease N Chronic Ear Infections N Hypertension N Chicken Pox Y Autism Spectrum Disorder (ASD) N Gynecological History Statement/Question Response Abnormal Pap [...] toxoid, unspecified formulation 0 completed Monserrat michele [facility] 05/08/2020 13:20:07 Tdap 0 completed Shanelle Javed NP, S [address] [place] [address], [address] 04/21/2018 13:56:14 Past Encounters Encounter ID Performer Location Encounter Start Date Encounter Closed Date Diagnosis/Indication Diagnosis SNOMED-CT Code Diagnosis ICD10 Code Diagnosis Note [id number] Shanelle Javed NP, S [facility] [address] [place] [address],[place] [address] 04/21/2018 13:18:22 04/21/2018 15:01:42 Adult health examination 129272961 Z00.00 Active or passive immunization 877836930 Z23 Pt defers Flu vaccine Vitamin D deficiency 347 85683 E55.9 To call urologist, find out compisitio n of recent stone & if continuati on Vit. d supplement ation recommende d Herpes simplex 35795741 B00.9 helps cold sores tremendous ly Hypercholesterolemia 136 89216 E78.00 stable Microscopic hematuria 19 1127079 R31.21 [id number] August CATIA [place] [facility] [address] [facility],[place] [address] 04/15/2019 15:19:04 04/15/2019 16:24:48 Adult health examination 287235747 Z00.00 labs done 04/2019 - reviewed Active or passive immunization 585568258 Z23 refuses flu shot ama Body mass index 25-29 - overweight 282760130 Z68.27 Pain in ri ght hip joint 5961564692 50651 M25.551 comes back everytime she starts running Increased blood pressure 54485722 R03.0 just had garlic parm fries will work on healthier diet choices exercise 30 minutes Dyspnea on exertion 6084 5006 R06.09 possibly EIB, will monitor for change consider stress test if worsening Atypical chest pain 1025 75404 R07.89 able to do spin classes without chest pain acs unlikely but f/u if persistent [id number] KAREEN ROMERO [facility] [address],[place] [address] 05/08/2020 13:19:55 05/08/2020 15:01:27 Adult health examination 854383795 Z00.00 needs repeat lab work, hasn't had it done in a year Exposure t o SARS-CoV-2 966474654 Z20.828 possible COVID in september Cough 33182848 R05 possible COVID in september, will need to check her lungs for residual affects as she is reporting chronic cough and sob with activity Hot sweats 085634274 R61 having hot flashes, will check FSH level to see if in menopause/ gayle menopause Fatigue 98102995 R53.83 family hx of thyroid with brother and parent, needs to be rechecked evan with symptoms she is presenting History of calculus of kidney 129682854 Z87.442 hx of recurrent kidney stones, needs [...] Guarantor Name 04/21/2018 1 [place] [id number] Kathy Whitman [id number] Kathy Whitman 05/08/2020 1 [place] [id number] Kathy Whitman [id number] Kathy Whitman Notes Date Note Type Note Provider Name a nc Address Organization Details Recorded Time 8 text/html [...] date eye exams recent renal calculi saw [employer] recently for right ovarian cyst, was multi septated ?'s elevated PTH-I, nml caclium some mild CP behind breast bone after running on treadmill, worse with raising arms, Denies SOB/dizziness Shanelle Javed NP, S [address] [place], [address], [facility] 04/21/2018 14:19:19 9 [...] of her chest August CATIA [place] [address] [facility], [place], [address], [facility] 04/15/2019 16:17:21 1 [...] vision problems; glasses and contacts KAREEN ROMERO [address] [place] [address], [address], [facility] 05/08/2020 14:04:52 OBGyn Episode No OBEpisode recorded.
[2024-08-26 13:33] LABS: Anion Gap 13 (12-20); Blood Urea Nitrogen 13 mg/dL (9-16); C Reactive Protein 1.46 mg/dL (< or = 0.50); Calcium 9.7 mg/dL (8.4-10.2); Carbon Dioxide 24 mmol/L (22-29); Chloride 105 mmol/L (96-108); Estimated Glomerular Filt Rate > 60; Glucose Random 92 mg/dL (60-115); Magnesium 2.1 mg/dL (1.6-2.6); Potassium 4.1 mmol/L (3.3-5.1); Sodium 138 mmol/L (135-145)
[2024-08-26 14:07] LABS: Erythrocyte Sedimentation Rate 11 MM/HR (0-20)
[2024-08-29 21:38] LABS: Lyme Abs Screen <0.90 index
== END 2024-08-26 11:19 | disposition home or self-care (01) ==
LOC: HO.HMGCX 11:18
PROVIDERS: PCP Physician Assistant Surgical; Visit Provider Physician Assistant Surgical
DX: M54.50 Low back pain, unspecified (principal); G89.29 Other chronic pain; E87.8 Other disorders of electrolyte and fluid balance, not elsewhere classified; M25.561 Pain in right knee; M25.562 Pain in left knee
CPT/HCPCS: 36415; 72100; 80048; 83735; 85652; 86140; 86617; 86618

== ENCOUNTER → 2024-08-26 11:33 | Outpatient (BNV) | payer OTHER, SELFPAY | PROVIDERS: PCP Physician Assistant Surgical; Visit Provider Radiology Diagnostic Radiology | DX: M54.50 Low back pain, unspecified (principal) | CPT/HCPCS: 72100 ==

== ENCOUNTER → 2024-10-04 08:57 | Outpatient (REF) | payer OTHER, SELFPAY ==
--- NOTE | 2024-10-04 09:03 | CA_ITS ---
Acquisition Time: 2024-10-04 10:34:21 Total Exercise Time: 00:09:00 Test Indications: cp Medications: see h&p Protocol: MIKE Max HR: 153 BPM 90% of Pred: 169 BPM Max BP: 172/70 mmHG Max Work Load: 10.1 METS Exercise stress test with exercise 9 mins of Mike Protocol, achieving 90% MPHR, without any anginal symptoms, without any arrythmias, with normotensive response to exercise. Without any EKG changes meeting criteria for ischemia. In recovery, pt continued to feel good. Test reviewed with Dr. Cordero. Referred By: Maynor Cheek Electronically Signed By: Christopher Posada
--- NOTE | 2024-10-04 09:05 | CA_ITS ---
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 The calculated ejection fraction is 66% by biplane method. - No obvious valvular pathology seen on this study. Findings Left Ventricle Normal left ventricular cavity size. There is normal left ventricular wall thickness. The left ventricular systolic function is normal. The calculated ejection fraction is 66% by biplane method. There is no evidence of regional wall motion abnormalities. Diastolic function is normal for age. Right Ventricle Normal right ventricular cavity size and systolic function. Atria Both atria are normal in size. Aortic Valve There is a normal trileaflet aortic valve. There is no aortic valve stenosis. There is no aortic valve regurgitation. Mitral Valve The mitral valve appears normal. There is no mitral valve regurgitation. There is no mitral valve stenosis. Pulmonic Valve The pulmonic valve is likely normal. Tricuspid Valve Normal tricuspid valve structure. There is trace tricuspid valve regurgitation. There is no evidence of pulmonary hypertension. Great Vessels The asc aorta and aortic arch are normal in size. Venous The inferior vena cava is normal in size and collapses greater than 50% with inspiration. Pericardium/Pleural There is no evidence of pericardial effusion. Prior Study Comparison No prior study available for comparison. Recommendations, Care & Conclusions No obvious valvular pathology seen on this study. Measurements 2D Linear Measurements IVSd: 0.95 0.6-0.9/0.6-1.0 cm LVIDd: 4.57 3.9-5.3/4.2-5.9 cm LVIDd Index: 2.44 2.4-3.2/2.2-3.1 cm/m2 LVIDs: 2.84 2.0-3.6 cm LVPWd: 0.92 0.7-1.1 cm LA Diam: 3.90 2.7-3.8/3.0-4.0 cm LAIDs Index: 2.09 1.5-2.3 cm/m2 LV Mass: 177.35 67-162/88-224 g LV Mass Index: 94.84 43-95/49-115 g/m2 LVOT Diam: 2.20 3.0+(-)1.3 cm 2D Systolic Function EF 4C: 66.10 >55% EF 2C: 65.90 >55% EF BiP: 66.30 >55% Mitral Valve MV Pk E: 0.63 MV PK A: 0.63 MV Decel Time: 172.00 E/A: 1.00 E'Lateral: 8.49 E'Medial: 6.31 E/E' Med: 9.90 E/E' Lat: 7.40 PHT: 50.00 MVA PHT: 4.40 Decel [place]: 3.64 Aortic Valve AoV Pk Shaheen: 1.19 AoV Mn Shaheen: 0.80 AoV VTI: 0.24 AoV Pk Grad: 6.00 Aov Mn Grad: 3.00 JUANIS Cont.VTI: 3.33 LVOT LVOT Pk Shaheen: 1.12 LVOT Mn Shaheen: 0.76 LVOT VTI: 0.21 LVOT Pk Grad: 5.00 LVOT Mn Grad: 3.00 LVOT Diam: 2.20 LVOT Area: 3.80 Diastolic Function MV Pk E: 0.63 MV Pk A: 0.63 E/A: 1.00 E'Medial: 6.31 E/E' Med: 9.90 E' Laterial: 8.49 E/E' Lat: 7.40 Right Ventricle TAPSE (mm): 26.40 TVS' Shaheen: 10.90 Tricuspid Valve TR Pk Shaheen: 1.59 TR Pk Grad: 10.00 RA Press: 3.00 RVSP: 13.00 Great Vessels Aorta Sinus of Valsalva: 3.10 2.0-3.5 cm Ao Asc: 3.10 2.1-3.4 cm Ao Arch: 2.50 Pulmonary Valve PV Pk Shaheen: 1.14 Peak PV Grad: 5.00 Updated in Other Vendor System with Status of Final John Cordero MD electronically signed on 10/04/2024 3:31:55 PM with status of Final
--- OUTSIDE RECORDS SUMMARY | 2024-10-04 09:39 | XMS_ITS ---
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 the day before the procedure for 1 day 09/24/2023 Active Vitamin D 50 MCG (1999) 1 tablet Oral ly Once a day for 30 day(s) 09/24/2023 Active Atorvastatin Calcium 10 MG Oral for 90 Active Immunizations Vaccine Route Administration Date Status Comme nts Influenza Unknown 09/24/2023 Refused Social History Tobacco Use: Social History Observation Description Date Details (start date - stop date) Never Smoker NA - NA Tobacco Use/Smoking Question Answer Notes Patient is a nonsmoker Alcohol Screen Question Answer Notes Did you have a drink contain ing alcohol in the past year? Yes How often did you have a dri nk containing alcohol in the past year? Monthly or less (1 point) How many drinks did you have on a typical day when you were drinking in the past year? 1 or 2 drinks (0 point) How often did you have 6 or more drinks on one occasion in the past year? Never (0 point) Points 1 Interpretation Negative Problems Problem Type SNOMED Code ICD Code Onset Dates Problem Status W/U Status Risk Notes Problem [id number] Colon cancer screening (Z12.11) Active confirmed Problem [id number] Encounter for other preprocedural examination (Z01.818) Active confirmed Vital Signs Temperature 98.6 degrees Fahrenheit 09/24/19 24 Blood pressure systolic 000 mm Hg 09/24/19 24 Blood pressure diastolic 00 mm Hg 024 Height 5 ft 5 in in 09/24/2023 Weight 181 lb 8 oz lbs 09/24/2023 BMI 30.20 kg/m2 09/24/2023 Encounters Encounter Location Date Provider Diagnosis [facility] [address] [place] [address] 09/24/2023 Jd Blanco Jr Encounter for other preprocedural examination Z01.818 and Colon cancer screening Z12.11 Assessments Encounter Date Diagnosis (ICD Code) Assessment Notes Treatment Notes Treatment Clinical Notes Section Notes 09/24/2023 Encounter for other preprocedural examination (ICD-10 - Z01.818) We discussed colonoscopy today. We discussed risks and benefits of the procedure today. She understands these and agrees to proceed. This will be scheduled at her convenience. 09/24/2023 Colon cancer screening (ICD-10 - Z12.11) Colonoscopy material was printed We discussed colonoscopy today. We discussed risks and benefits of the procedure today. She understands these and agrees to proceed. This will be scheduled at her convenience. Plan Of Treatment Medication Medication Name Sig Start Date Stop Date Notes MiraLax (colon prep) 17 GM/SCOOP mixed with Gatorade or Crystal Light Orally begin at 5:00 p.m. the day before the procedure for 1 day 09/24/2023 Treatment Notes Assessment Notes Colon cancer screening Colonoscopy mater ial was printed Future Test Test Name Order Date COLONOSCOPY 09/24/2023 Next Appt Details Follow Up: 1 Year, Reason: Progress Notes * SUSHIL IRENEDOB:1974 (48 yo F)Acc No.[id number]:09/24/2023 Progress Notes Patient:?SUSHIL IRENE Provider:?Jd Blanco MD :1975???Age:48 Y???Sex:Female D ate:09/24/2023 Address:[address] [id number] Pcp:GARBIEL Maradiaga Subjective: * Chief Complaints: * ???1. Patient presents today for a COLON SCREENING. * HPI: ???New symptom(s):? Sushil is a pleasant 48-year-old woman seen today for her preoperative colonoscopy visit. She has no complaints of rectal bleeding or change in her bowel habits. * ROS:?General/Constitutional:?Change in appetite?denies.?Fatigue?denies.?ENT:?Patient denies?difficulty swallowing.?Respiratory:?Patient denies?shortness of breath.?Cardiovascular:?Patient denies?chest pain.?Gastrointestinal:?Comments?See HPI for details.?Genitourinary:?Difficulty urinating?denies.?Incontinence?denies.?Musculoskeletal:?Patient denies?muscle aches.?Skin:?Patient denies?pruritis.?Neurologic:?Patient denies?low back pain.?Psychiatric:?Patient denies?mental or physical abuse.? * Medical History:?Hyperlipide andrew, Vitamin D deficiency. * Surgical History:? s ection 2005,2008, Oophorectomy, benign disease 1991, Uterine polyps , cysts on scalp x 3 . * Family History:?Father: ian tuttle, diagnosed with HTN (hypertension), Diabetes, Heart disease.?Mother: .? NO family history of liver cancer or colon cancer. * Social History:?Tobacco Use:?Tobacco Use/Smoking?Patient is a?nonsmoker.?Drugs/Alcohol:?Alcohol Screen?Did you have a drink containing alcohol in the past year??Yes,?How often did you have a drink containing alcohol in the past year??Monthly or less (1 point), How many drinks did you have on a typical day when you were drinking in the past year??1 or 2 drinks (0 point),?How often did you have 6 or more drinks on one occasion in the past year??Never (0 point),?Points?1,?Interpretation?Negative.?Miscellaneous:?Marital status: . 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 * Medications:?Taking Atorvast atin Calcium 10 MG Tablet Oral , Taking Vitamin D 50 MCG (1999) Tablet 1 tablet Orally Once a day, Medication List reviewed and reconciled with the patient * Allergies:?Latex. Objective: * Vitals:?Wt: 181 lb 8 oz, Ht: 5 ft 5 in, BMI:30.20 Index, BP: 000/00 mm Hg, Temp: 98.6. * Examination: ???General Examination: ?GENERAL APPEARANCE:?in no acute distress.?HEAD:?normocephalic.?EYES:?sclera non-icteric.?ORAL CAVITY:?mucosa moist.?NECK/THYROID:?no lymphadenopathy.?SKIN:?anicteric.?HEART:?S1, S2 normal, no murmurs.?LUNGS:?clear to auscultation bilaterally.?CHEST:?normal shape and expansion.?ABDOMEN:?soft, nontender, nondistended, bowel sounds present, no organomegaly .?EXTREMITIES:?no clubbing, cyanosis, or edema.?PSYCH:?cognitive function intact.? Assessment: * Assessment: 1.?Encounter for other prepr ocedural examination - Z01.818 (Primary)?2.?Colon cancer screening - Z12.11? We discussed colonoscopy tod ay. We discussed risks and benefits of the procedure today. She understands these and agrees to proceed. This will be scheduled at her convenience. Plan: * Treatment: Notes: Colonoscopy material was printed?? * Immunizations:? Influenza (Not administered - Refused: Patient decision) * Procedure Codes:?3017F COLOR ECTAL CA SCREEN DOC REV, G9902 Pt scrn tbco and id as user, G9745 DOC RSN FOR NOT SCREEN/REC F/U HBP * Preventive Medicine:? ??Counseling:?Care goal follow-up plan:?Above Normal BMI Follow-up?Giving encouragement to exercise,?BMI management provided?Yes.? * Follow Up:?1 Year * * Sign off status: Completed true * Provider:?Jd Blanco MD Date:?0 09/24/2023 Generated for Juanjosei dylon/Karli/eTransmitting on:?10/04/2024 09:39 AM EDT History and Physical Notes * HPI (History of Present Illness) Category Sub-Category Detail Notes Category Not es New symptom(s) Sushil is a pleasant 48-year-old woman seen today for her preoperative colonoscopy visit. She has no complaints of rectal bleeding or change in her bowel habits. Examination Category Sub-Category Detail Notes Category Not es General Examination GENERAL APPEARANCE: in no acute di stress HEAD: normocephalic EYES: sclera non-icteric NECK/THYROID: no lymphadenopathy HEART: S1, S2 normal, no mu rmurs CHEST: normal shape and exp ansion LUNGS: clear to auscultatio n bilaterally ABDOMEN: soft, nontender, non distended, bowel sounds present, no organomegaly SKIN: anicteric EXTREMITIES: no clubbing, cyanosi s, or edema PSYCH: cognitive function i ntact ORAL CAVITY: mucosa moist
== END ==
LOC: HO.CARD 08:57
PROVIDERS: PCP Physician Assistant Surgical; Visit Provider Physician Assistant Surgical
DX: R07.9 Chest pain, unspecified (principal); R00.2 Palpitations
CPT/HCPCS: 93017; 93270; 93306

== ENCOUNTER → 2024-10-04 09:03 | Outpatient (BNV) | payer OTHER, SELFPAY | PROVIDERS: PCP Physician Assistant Surgical | DX: R07.9 Chest pain, unspecified (principal) | CPT/HCPCS: 93016; 93018; 93350 ==

== ENCOUNTER 2025-02-09 07:52 | Outpatient (REF) | payer OTHER, SELFPAY | END 2025-02-09 07:53 | disposition home or self-care (01) | LOC: HO.MAMMO 07:52 | PROVIDERS: PCP Physician Assistant Surgical; Visit Provider Physician Assistant Surgical | DX: Z12.31 Encounter for screening mammogram for malignant neoplasm of breast (principal) | CPT/HCPCS: 77063; 77067 ==

== ENCOUNTER → 2025-02-09 08:00 | Outpatient (BNV) | payer OTHER, SELFPAY | PROVIDERS: PCP Physician Assistant Surgical; Visit Provider Internal Medicine | DX: Z12.31 Encounter for screening mammogram for malignant neoplasm of breast (principal) | CPT/HCPCS: 77063; 77067 ==

== ENCOUNTER 2025-02-16 11:37 | Outpatient (AMB) | payer OTHER, SELFPAY ==
--- OUTSIDE RECORDS SUMMARY | 2023-10-30 06:00 | XMS_ITS ---
Author Organization [facility] Address [address] [place] [id number] Care Team Providers Care Four Slide Machine Operator Name Role Phone Ibis Caicedo Primary Care Provider Jd Chapa Jr REASON FOR VISIT screening Encounters Encounter Location Date Provider Diagnosis [facility] [address] [place] [phone] 10/30/2023 Jd Blanco Jr Encounter for screening colonoscopy Z12.11 Assessments Encounter Date Diagnosis (ICD Code) Assessment Notes Treatment Notes Treatment Clinical Notes Section Notes 10/30/2023 Encounter for screening colonoscopy (ICD-10 - Z12.11) Plan Of Treatment No Information Progress Notes * SUSHIL IRENEDOB:1974 (49 yo F)Acc No.[id number]:10/30/2023 COLON WITH MAC Patient: SUSHIL ESPINOSA Provider: Alex Blanco MD :1975 A ge:48 Y S ex:Female Date:10/30/2023 Address:[address] [place], [place] [id number] Pcp:GABRIEL Maradiaga Subjective: * Chief Complaints: * 1 . Screening. * Medical History: Objective: * Vitals: Assessment: * Assessment: 1. E ncounter for screening colonoscopy - Z12.11 (Primary) Plan: * Treatment: * Procedure Codes: 4 5378 DIAGNOSTIC COLONOSCOPY * * The named appointment provid er may or may not be the originator of this progress note, and it is not deemed complete until electronically signed by the appointment provider. Sign off status: Pending * Provider: Alex Blanco MD Date: 0 10/30/2023 Generated for Ryan osborne/Karli/Shreya on: 1 02:58 PM EDT
--- NOTE | 2025-02-16 11:47 | MHC.OFFVIS ---
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 Tube Draw Helper concerns: fatigue, weight gain, or achy. She is not at all interested in HRT. Currently sexually active. Denies any vaginal dryness or irritation. STI testing offered; she declines. Attempting to eat a healthy diet with calcium and vitamin D and stays active with exercise. Last pap smear; 2021, negative. Last mammogram; February 2025 pending read. Colonoscopy is UTD. Denies any family history of breast, ovarian or colon cancer. [facility] Medical History Vitamin D deficiency Hyperlipidemia Hot flashes History of kidney stones Surgical History History of removal of calculus of renal pelvis through percutaneous nephrostomy History of History of left oophorectomy History of dilation and curettage Family History Father Hypertension Diabetes Hyperlipidemia History of quadruple bypass Mother Frontotemporal dementia Brother Hypothyroid Social History Household Members: Spouse Housing: House Alcohol intake: current Alcohol intake frequency: holidays/special occasions only Patient Tobacco Use Status: Never used Tobacco Current occupational status: employed Current occupation: [employer] Sexual orientation: Straight/Heterosexual Gender identity: Female Female Reproductive History Menstrual Age of Menarche: 11 Total pregnancies: 3 Full term: 2 Number of Living Children: 2 Ab spontaneous: 1 Date of last pap smear: 05/01/22 (neg pap and hpv) Date of Mammogram: 02/09/25 Review of Systems Const All systems reviewed & are unremarkable except as noted in HPI and below Reports as per HPI Eyes Reports no additional complaints ENT Reports no additional complaints Card Reports no additional complaints Resp Reports no additional complaints GI Reports as per HPI and Reports no additional complaints Reports as per HPI Musc Reports no additional complaints Skin/Breast Reports as per HPI Neuro Reports no additional complaints Psych Reports no additional complaints Endo Reports no additional complaints Randy/Lymph Reports no additional complaints Aller/Immun Reports no additional complaints Physical Exam Vital Signs: Last Vital Signs BP 110/72 02/16/25 11:48 BMI result Body Mass Index 30.9 Const General: cooperative, healthy appearing, no acute distress, well developed and alert Orientation/consciousness: patient oriented x3 HEENT Head: Yes normal to inspection Eyes General: appearance normal, both eyes and all related structures Neck Neck: Yes normal visual inspection Thyroid: Thyroid normal Chest Chest palpation & inspection: normal inspection of the chest and other (no puckering, dimpling, peau de orange, retraction, discharge, masses) Breast/axilla inspection: normal inspection of the breasts Breast/axilla palpation: normal palpation of the breasts Resp Effort & Inspection: normal respiratory effort GI Inspection: Yes normal to inspection Palpation (GI): Soft to palpation Rectal Exam - Female: deferred General: Yes bladder normal to palpation External Female Exam: normal external appearance and normal appearance of the urethra Speculum Exam - Vagina: normal appearance of the vagina, normal palpation and normal vaginal discharge Speculum Exam - Cervix: normal appearance of the cervix and normal palpation Bimanual exam- vagina & uterus: normal bimanual exam, normal palpation, uterine size normal, bladder normal to palpation, normal palpation and non-tender Bimanual Exam- Adnexa, other: no masses Skin General skin exam: no rashes or lesions noted Rashes: no rashes Neuro General: patient oriented x3 Cognition (Neuro): normal cognition Extrem General: Yes normal to inspection Psych Attitude: cooperative Thought process: Normal thought process present Assessment & Plan Assessment & Plan (1) Encounter for annual routine gynecological examination: Code(s): Z01.419 - Encounter for gynecological examination (general) (routine) without abnormal findings Category: Medical Plan Discussed: Current recommendations for pap smears per ASCCP guidelines. Breast awareness, periodic self breast exams and yearly mammogram. Maintain a healthy lifestyle, well balanced diet including Calcium 1,200 mg and Vitamin D 600 IU daily, and routine exercise. Menopausal informational websites for information regarding her concerns today. Contact the office with any postmenopausal bleeding. Patient verbalizes understanding and agrees to the plan of care. She was given opportunity to ask questions and all questions were answered to the best of my ability. RTO in 1 year for annual catalyst operator chief exam. This note is constructed using voice recognition software. While every effort has been made to ensure accuracy, administrative executive errors may have been included. Orders: Orders Bacterial Vaginosis Panel Today Z01.419 - Encounter for gynecological examination (general) (routine) without abnormal findings Coding Level of Care Code Est Pt Prev Care 40-64y(09496) Diagnoses Encounter for annual routine gynecological examination Z01.419
[2025-02-16 11:48] VITALS: BP 110/72; BMI 30.9
--- OUTSIDE RECORDS SUMMARY | 2025-02-16 14:58 | XMS_ITS | Clinical Summary ---
Author Organization [facility] Address [address] [place] [address] Phone Care Team Providers Care Arborist Name Role Phone Linda Saxena I CNM Unavailable [phone] Maynor Cheek PA-C Primary Care Provider [phone] Allergies Active Allergy Reactions Criticality Noted Date Comments Latex Rash,Unknown Low 05/09/2021 Medications cholecalciferol (VITAMIN D3) 2,000 unit capsule Take 2,000 Units by mouth daily. Active atorvastatin (LIPITOR) 10 MG tabletIndications:M ixed hyperlipidemia TAKE 1 TABLET DAILY 90 tablet 3 4 Active loratadine (CLARITIN) 10 mg tablet Take 10 mg by mouth daily. Active magnesium 250 mg Tab Take 250 mg by mouth nightly at bedtime as needed. Active melatonin 5 mg Tab Take 5 mg by mouth nightly at bedtime as needed. Active Active Problems Problem Noted Date Diagnosed Date Body aches 08/25/2024 Assessment & Plan (08/25/2024 5:21 PM EDT): Patient noted to have a body aches which she describes as some spasming of her muscles which she states is a new symptom therefore started taking magnesium supplements. Will obtain a magnesium level and Lyme titer. Did explain to the patient that these could be in relation to her statin. However patient states that it is unable to be correlated from the start of her statin as she has been on it for significant mount of time. I did explain that it is not uncommon for her to develop a side effect to the medication even years later. Upon receiving the labs if the everything is normal would recommend a trial off of atorvastatin to see if there is symptoms to do improve if so then we would need to find a different statin that we did hopefully be beneficial to the patient and give her less side effects. The other alternative would be is that she would manage the body aches and stay on the atorvastatin. Hyperchloremia 08/25/2024 Assessment & Plan (08/25/2024 5:21 PM EDT): Patient notes that her chloride level on her recent labs in May 2024 showed a slight elevation of her chloride level and had been doing some research. She is nervous about this as she had had kidney stones in the past therefore I will repeat a BMP. Arthralgia of both knees 08/25/2024 Assessment & Plan (08/25/2024 5:22 PM EDT): Patient noted to have arthralgias in knees, feet, back, shoulders. Patient has never been further worked up with regards to her joint pain. Patient denies any rashes or any previous tick bites however given the severity of her joint pain as well as her body aches I will obtain a Lyme titer, ESR, and CRP levels. I did explain once again to the patient that this could be a side effect of the atorvastatin even years later. Chest pain 08/25/2024 Assessment & Plan (08/25/2024 5:24 PM EDT): Patient with noted chest pain located on the right side along with some noted lightheadedness as well as shortness of breath on exertion. Patient does carry a family history of requiring quadruple bypass surgery and A-fib in her father and A-fib in her uncle. Given her symptoms, comorbidity of hyperlipidemia age and sex. I will order: - Cardiac stress test patient would like to have this done at [facility] -Echocardiogram at [facility] -event monitor -If there are any abnormalities patient will need to be referred to cardiology. 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 She notes that this has progressively gotten worse however denies any symptoms in her lower extremities. She mentions that is confined to the middle of her low back. On physical examination she is noted to have no tenderness to palpation of the spinous processes. She has no noted muscle spasms in the paraspinous musculature. I did explain that this could be in relation to underlying arthritis and or perimenopausal symptoms. -Continue ibuprofen as needed for pain -Obtain a lumbar x-ray for further evaluation. Palpitations 08/25/2024 Assessment & Plan (08/25/2024 5:28 PM EDT): Patient noted to have episodes of palpitations with associated lightheadedness and shortness of breath along with some right-sided chest discomfort. Patient has never undergone a Holter monitor or further workup and evaluation of her symptoms. Palpitations it could be related to numerous conditions however looking through her chart her CBC reveals a normal H&H therefore I do not feel that anemia is a sole cause, her TSH level is well within normal limits. She is currently perimenopausal which could be a contributing factor. However given her history of chest discomfort and lightheadedness along with shortness of breath arrhythmias should be ruled out. Therefore we will obtain: - Echocardiogram to further assess the structure of the heart -Event monitor for 30 days to rule out any arrhythmias. -Of note patient has had a normal TSH. We will also order Lyme titer to rule out tickborne illness. Other hyperlipidemia 08/12/2023 Assessment & Plan (08/25/2024 5:19 PM EDT): Last lipid panel well within normal limits in May 2024 at [facility] labs. Continue Lipitor 10 mg p.o. daily Assessment & Plan (05/26/2024 5:39 PM EST): Lipid panel is ordered. Continue atorvastatin 10 mg daily as prescribed Orders: Lipid panel; Future Assessment & Plan (08/12/2023 9:52 AM EDT): Lipid panel last completed May 2023, stable. Continue atorvastatin as prescribed Vitamin D deficiency 03/31/2018 Resolved Problems Problem Noted Date Diagnosed Date Resolved Date History of renal calculi 04/15/2019 Microscopic hematuria 04/15/20192024 Herpes simplex 04/20/2018 08/25/2024 Immunizations Immunization Administration Dates Next Due COVID-19 (Pre-02/23) Pfizer Vaccine, mRNA, PF ,08/15/2020 Influenza Quadrivalent Preservative Free IM 02/01 Td (adult) 5 Lf Tetanus Toxoid, PF, Adsorbed 10/2021 Tdap 09/01/2009 Zoster recombinant 08/25/2024,05/26/2024 Family History Medical History Relation Comments Asthma Brother Hyperlipidemia Brother Thyroid disease Brother No Known Problems Daughter 1 No Known Problems Daughter 2 Atrial fibrillation Father correct with quad bipass Diabetes type II Father Heart disease Father Hyperlipidemia Father Hypertension Father Pacemaker Father Diabetes Maternal Grandfather Frontotemporal dementia Mother Heart attack Paternal Grandfather Diabetes Paternal Grandmother Hyperlipidemia Paternal Grandmother Hypertension Paternal Grandmother Cancer Paternal Uncle Relation Status Comments Brother Alive Daughter 1 Alive Daughter 2 Alive Father Alive Maternal Grandfather Mother (Age 65) Paternal Grandfather Paternal Grandmother Paternal Uncle Social History Tobacco Use Types Packs/Day Years Used Date Smoking Tobacco: Never Smokeless Tobacco: Never Tobacco Cessation:Counseling Given: Not Answered Alcohol Use Standard Drinks/Week Comments Yes 0 (1 standard drink = 0.6 oz pur e alcohol) 1-2 drinks, 2-4 x month Child or Family Care Answer Date Record ed Do you have problems with on e of the following making it difficult for you to work, study, or receive health care? No 08/11/2023 Education Answer Date Recorded Are you interested in help w ith more adult education (for example, completing high school, GED, job training, learning the [place] language, technical skills, or developing parenting skills)? No 08/11/2023 Are you concerned about learning? Not on file 08/11/2023 No 08/11/2023 Yes 08/11/2023 Food Answer Date Recorded Within the past 6 months we worried whether our food would run out before we got money to buy more. Never True 08/11/2023 Within the past 6 months the food we bought just didn't last and we didn't have enough money to get more. Never True Residential Stability Answer Date Recor ded What is your housing situation today? I have [place] 08/11/2023 How many times have you move d in the past 12 months? Zero (I did not move) 08/11/2023 Paying for Meds Answer Date Recorded Do you have trouble paying for medicines? No 08/11/2023 Paying Utility Bills Answer Date Record ed Do you have trouble paying your heating or elect ricity bill? No 08/11/2023 Transportation Answer Date Recorded Has the lack of transportati on kept you from medical appointments or from getting medications? No 08/11/2023 Unemployment Answer Date Recorded Are you currently unemployed or working on a part-time or temporary basis, and looking for work? No 05/13/2022 Digital Access Answer Date Recorded No 08/11/2023 Yes 08/11/2023 Do you have reliable internet access at home? Ye s 08/11/2023 Do you have a device (e.g., phone, tablet, computer) with a working camera? Yes 08/11/2023 Intimate Partner Violence Answer Date R ecorded Denied Basic Needs Not on file 08/25/2024 In the past 12 months have y ou been in a relationship with a person who hurts, threatens, or tries to control you? No 08/25/2024 Worried food would run out Not on file 08/25 In the past 12 months have y ou been in a relationship with a person who hurts, threatens, or tries to control you? No 08/25/2024 Comments Unknown Sex and Gender Information Value Date Recorded Sex Assigned at Female 05/15/2022 3:11 PM EST Legal Sex Unknown 04/15/2019 3:56 PM EST Gender Identity Female 05/15/2022 3:11 PM EST Sexual Orientation Straight 05/15/2022 3: 11 PM EST Last Filed Vital Signs Vital Sign Reading Time Taken Comments Blood Pressure 126/84 08/25/2024 3:23 PM EDT Pulse 82 08/25/2024 3:23 PM EDT Temperature 36.4 C (97.5 F) 08/25/2024 3:23 PM EDT Respiratory Rate 14 08/25/2024 3:23 PM EDT Oxygen Saturation 97% 08/25/2024 3:23 PM EDT Inhaled Oxygen Concentration - - Weight 83.2 kg (183 lb 6.4 oz) 08/25/2024 3:23 P M EDT Height 163.8 cm (5' 4.49 ) 08/25/2024 3:23 PM ED T Body Mass Index 31.01 08/25/2024 3:23 PM EDT Plan of Treatment Upcoming Encounters Date Type Department Care Team (Late st Contact Info) Description 06/01/2025 3:20 PM EST Office Visit [facility] Internal Medicine [address] [place], [place] [id number] Maynor Cheek PA-C [address] [place] [address] [email or web address] [facility] Maintenance Due Date Last Done Comments HEPATITIS C SCREENING 1991 HIV ONE-TIME SCREENING (18-65 YEARS) 1991 COLOGUARD 2018 FIT TEST 2018 FOBT 2018 SIGMOIDOSCOPY 2018 VIRTUAL COLONOSCOPY 2018 PNEUMOCOCCAL VACCINES (50+ years) (1 of 1 - PCV) 2023 INFLUENZA VACCINE (#1) 2024 02/19/2021 COVID-19 VACCINE ( - season) 2025 09/05/2020, 08/15/2020 DEPRESSION SCREENING 08/25/2025 08/25/2024 SCREENING FOR DIABETES 05/27/2027 , 05/31/2022, 05/23/2021, Additional history exists LIPID PANEL 05/27/2029 05/27/2024, 05/05, 05/31/2022, Additional history exists Adult Td,Tdap Booster 05/09/2031 05/09/2021, 010 COLONOSCOPY 10/29/2033 10/30/2023 COLORECTAL CANCER SCREENING 10/29/2033 RSV VACCINE (1 - 1-dose 75+ series) 2048 SMOKING STATUS SCREENING (Once After 26 Yrs) Completed 08/25/2024 ZOSTER VACCINES Completed 08/25/2024, 05/26/2024 HEPATITIS A VACCINES Aged Out No long er eligible based on patient's age to complete this topic HIB VACCINES Aged Out No longer eligi ble based on patient's age to complete this topic MENINGOCOCCAL VACCINES (ACWY) Aged Out No longer eligible based on patient's age to complete this topic MENINGOCOCCAL VACCINES (B) Aged Out N o longer eligible based on patient's age to complete this topic Medical Devices Not on file Procedures Procedure Name Priority Date/Time Associated Diagnosis Comments LIPID PANEL Routine 05/27/2024 Other hyperlipidemia COLONOSCOPY FOR RESULT ENTRY ONLY Routine 10/30/2023 3:47 PM EDT OUTSIDE GLUCOSE FASTING Routine 05/31/2022 from Last 3 Months or Most Recently Relevant to Health Maintenance Results * Lipid panel (05/27/2024) HDL - External 48 EXTER NAL NON-INTERFACE D REF LAB Cholesterol, Total - External 151 EXTERNAL NON-INTERFACE D REF LAB Triglycerides - External 95 EXTERNAL NON-INTERFACE D REF LAB LDL, calculated - External 84 EXTERNAL NON-INTERFACE D REF LAB Cardiac Risk Ratio - External EXTERNAL NON-INTERFACE D REF LAB Non-HDL Cholesterol - External EXTERNAL NON-INTERFACE D REF LAB Blood 05/27/2024 Ibis Coles [facility] LAB BLOOD ORDERABLES Edited Result - Final EXTERNAL NON-INTERFACED REF LAB * COLONOSCOPY FOR RESULT ENTRY ONLY (10/30/2023 3:47 PM EDT) Historical Provider HEALTH MAINTENANCE Edited Result - Final * Outside Glucose,Fasting (05/31/2022) Glucose, fasting - External 93 65 - 99 mg/dL Historical Provider LAB BLOOD ORDERABLES Mandi l Result from Last 3 Months or Most Recently Relevant to Health Maintenance Insurance CIGNA PPO CIGNA PPO CIGNA PPO CIGNA PPO CIGNA PPO CIGNA PPO Care Teams Arborist Relationship Specialty Start Date End Date Maynor Cheek PA-C [address] [place] [id number] [email or web address] PCP - General Physician Hide House Supervisor 06/29/24 Linda Saxena CNM [address] [place] [address] [place] [address] Obstetrics 05/22/23 Additional Source Comments The information contained in this document represents components of the legal health record. It is not the complete legal health record.[facility]
--- OUTSIDE RECORDS SUMMARY | 2025-02-16 14:59 | XMS_ITS | Encounter Summary ---
Author Organization [facility] Address [address] [place] [address] [place] [phone] Phone Care Team Providers Care Fraud Prevention Analyst Name Role Phone StormMati maza Primary Care Provider [phone] Radha Mendez EXECUTIVE OFFICER [employer] TEAM Primary Care Provider [phone] Linda Saxena I CNM Unavailable [phone] Ibis Coles HOG TENDER Primary Care Provider Maynor Cheek PA-C Primary Care Provider [phone] Encounter Details Date Type Department Care Team (Latest Contact Info) Description 04/15/2019 Transcribe Orders Virtual Department [address] [place] [address] Kandi Moulton PA-C [email or web address] [place] [address] Hip pain, right (Primary Dx) Social History Tobacco Use Types Packs/Day Years Used Date Smoking Tobacco: Never Assessed Comments Unknown Sex and Gender Information Value Date Recorded Sex Assigned at Female 05/15/2022 3:11 PM EST Legal Sex Unknown 04/15/2019 3:56 PM EST Gender Identity Female 05/15/2022 3:11 PM EST Sexual Orientation Straight 05/15/2022 3: 11 PM EST documented as of this encounter Plan of Treatment Upcoming Encounters Date Type Department Care Team ( st Contact Info) Description 06/01/2025 3:20 PM EST Office Visit [facility] Internal Medicine [address] [place] [address] Maynor Cheek PA-C [address] [place] [address] [email or web address] documented as of this encounter Visit Diagnoses Diagnosis Hip pain, right- Primary Pain in joint, pelvic region and thigh documented in this encounter Care Teams Fraud Prevention Analyst Relationship Specialty Start Date End Date Mati Camp DO PCP - General Internal Medicine 04/16/20 05/08/21 Radha Mendez NP PCP - General Family Medicine 05/09/21 07/06/23 Ibis Coles FNP [address] [address] PCP - General Nurse Practitioner 07/07/23 06/28/24 Maynor Cheek PA-C [address] [place] [phone] PCP - General Physician Railroad Whe[employer] And Axles Inspector 06/29/24 Linda Saxena CNM [address] [place] [address] [place] [address] Obstetrics 05/22/23 documented as of this encounter Additional Source Comments The information contained in this document represents components of the legal health record. It is not the complete legal health record.[facility]
--- OUTSIDE RECORDS SUMMARY | 2025-02-16 14:59 | XMS_ITS | Patient Health Record ---
Author Organization [facility] Address [address] [place] [id number] Care Team Providers Care Instructional Leader Name Role Phone Ibis Caicedo Primary Care Provider Jd Chapa Jr Unavailable Allergies Allergen (clinical drug ingredient) Drug/Non Drug Allergy documented on EMR Reaction Allergy Type Onset Date Status Latex Latex Unknown Allergy Active Reason For Referral No Information Medications Medication SIG (Take, Route, Frequency, Duration) Notes Start Date End Date Status MiraLax (colon prep) 17 GM/SCOOP mixed with Gatorade or Crystal Light Orally begin at 5:00 p.m. the day before the procedure; Duration: 1 day 09/24/2023 Active Vitamin D 50 MCG (1999) 1 tablet Oral ly Once a day; Duration: 30 day(s) 09/24/2023 Active Atorvastatin Calcium 10 MG Oral; Duration: 90 Active Immunizations Vaccine Route Administration Date [...] Problem Status W/U Status Risk Notes Problem Colon cancer screening (367044779) Colon cancer screening (Z12.11) Active confirmed Problem Pre-procedure evaluation check (768173675) Encounter for other preprocedural examination (Z01.818) Active confirmed Plan Of Treatment Future Test Test Name Order Date COLONOSCOPY 09/24/2023 Insurance Providers Payer Name Payer Address Payer Phone Subscriber Number Group Number Insured Name Patient Relationship to Insured Coverage Start Date Coverage End Date [employer] [address] [place] [phone] [id number] SUSHIL IRENE Self - patient is the insured Medical (General) History Medical History History ICD Code Hyperlipidemia Vitamin D deficiency Surgical History Surgery Date(Month/Year) section 2005,2008 Oophorectomy, benign disease 1991 Uterine polyps cysts on scalp x 3
== END 2025-02-16 12:28 | disposition home or self-care (01) ==
LOC: HO.HWS 11:37
PROVIDERS: PCP Physician Assistant Surgical; Visit Provider Advanced Practice Midwife
DX: Z01.419 Encounter for gynecological examination (general) (routine) without abnormal findings (principal)
CPT/HCPCS: 99396; 99459

== ENCOUNTER 2025-02-16 11:37 | Outpatient (REF) | payer OTHER, SELFPAY ==
[2025-02-16 16:16] LABS: Bacterial Vaginosis PCR NEGATIVE (Negative); Candida Group PCR NOT DETECTED (Not Detect); Candida glab krusei PCR NOT DETECTED (Not Detect); Trichomonas vaginalis PCR NOT DETECTED (Not Detect)
== END 2025-02-16 11:38 | disposition home or self-care (01) ==
LOC: HO.LNP 11:37
PROVIDERS: PCP Physician Assistant Surgical; Visit Provider Advanced Practice Midwife
DX: Z01.419 Encounter for gynecological examination (general) (routine) without abnormal findings (principal); Z20.2 Contact with and (suspected) exposure to infections with a predominantly sexual mode of transmission
CPT/HCPCS: 81515